=== PATIENT | female | born 1945 | race Caucasian/White ===

== ENCOUNTER → 2016-10-06 | Outpatient (CLI) | payer BC ==
[~2016-10-06] MED LIST: BIOTCAP2 PO; CHOL20007 PO; CYAN500T PO; FLUT0.15 NAE; LISI-461 PO; MAGN500C PO; MULT1CAP2 PO; PRLSR20 PO; VNTHFA/IN INH
--- NOTE | 2016-10-06 14:25 | DIAGNOSTIC IMAGING REPORT ---
SOFT TISS HEAD/NECK-THYROID CLINICAL HISTORY: E04.2 Nontoxic multinodular goiter COMPARISON STUDY: No previous studies for comparison. FINDINGS: The right of the thyroid measures 54 x 17 x 12 mm. The left lobe measures 49 x 16 x 13 mm. Both lobes are inhomogeneous in echotexture. There are multiple hypoechoic circumscribed wider than tall left lobe nodules demonstrating colloid artifact. The largest measures 15 x 12 x 6 mm. IMPRESSION: Multiple left lobe thyroid nodules. No suspicious imaging characteristics. Electronically signed by: Roger Leal M.D. 10/06/2016 2:24 PM Dictated Date/Time: 10/06/2016 2:23 PM
== END | disposition home or self-care (01) ==
LOC: C.ULTRBC 13:36
DX: E04.2 Nontoxic multinodular goiter (principal)

== ENCOUNTER 2017-02-20 11:26 | Emergency (ER) | payer BC ==
[~2017-02-20] VITALS: Ht 162.6 cm; Wt 87.4 kg
[2017-02-20 11:28] VITALS: TEMP 36.7; Ht 162.6 cm; Wt 87.4 kg
[2017-02-20] MEDS ORDERED: PRLSR20 PO (11:55)
[2017-02-20] MEDS ORDERED: BIOTCAP2 PO (11:55)
[2017-02-20] MEDS ORDERED: CYAN500T PO (11:55)
[2017-02-20] MEDS ORDERED: FLUT0.15 NAE (11:55)
[2017-02-20] MEDS ORDERED: VNTHFA/IN INH (11:55)
[2017-02-20] MEDS ORDERED: MAGN500C PO (11:55)
[2017-02-20] MEDS ORDERED: CHOL20007 PO (11:55)
[2017-02-20] MEDS ORDERED: MULT1CAP2 PO (11:55)
[2017-02-20] MEDS ORDERED: LISI-461 PO (11:55)
--- NOTE | 2017-02-20 12:59 | DIAGNOSTIC IMAGING REPORT ---
LEFT PELVIS/UNILATERAL HIP 2-3VIEWS CLINICAL HISTORY: 71 years-old Female presenting with LEFT HIP PAIN. TECHNIQUE: Single frontal view of the pelvis and frontal and frog-leg lateral views of the left hip were obtained. COMPARISON: None. FINDINGS: Bony pelvis intact. Mild degenerative change of the lower lumbar spine. Hip joints congruent. Sacroiliac joints congruent. No acute fracture or subluxation. Moderate stool burden. IMPRESSION: No acute osseous injury of the pelvis or left hip. Electronically signed by: Myron Thomas M.D. 02/20/2017 12:58 PM Dictated Date/Time: 02/20/2017 12:57 PM
--- NOTE | 2017-02-20 13:07 | EMERGENCY ROOM VISIT NOTE ---
ED Visit Note First contact with patient: 11:42 CHIEF COMPLAINT: Left hip injury this morning HISTORY OF PRESENT ILLNESS: Patient is a 71-year-old white female who presents to the emergency department for evaluation of pain in the lateral aspect of her left hip after an injury that occurred about 2 hours ago. She was doing some exercises prescribed to her by her chiropractor to straighten her legs. She describes that she was standing on a step with the left leg, and performing a squatting movement. States that while lowering herself, she felt and heard a pop in the posterior lateral aspect of the left hip with acute onset of pain. It is painful for her to do any movement where she flexed the hip afterwards, including going up the stairs. She tried taking Tylenol for her discomfort. She rates her pain a dull, aching 2/10. She denies any prior history of hip problems. She does have spinal stenosis for which she follows with the chiropractor. The pain is in the lateral aspect of her hip, and does not radiate. There is no numbness or tingling in the right lower extremity. REVIEW OF SYSTEMS: Review of systems as per HPI. All other systems reviewed were negative. At least 6 systems reviewed. PMH: Electronic medical records are reviewed and summarized as above/below. See Problem List. SOCIAL HISTORY: Patient lives at home employed. Nonsmoker. PHYSICAL EXAM: Vital Signs: Reviewed Nurse's notes. CONSTITUTIONAL: Patient is a well-appearing 71-year-old white female who is awake and alert and in no acute distress. HEART: Regular rate and rhythm. LUNGS: Clear to auscultation. ABDOMEN: Bowel sounds are present. Abdomen is soft, nontender, nondistended. NEUROLOGICAL: Alert and cooperative. Sensory and motor functions grossly intact. MUSCULOSKELETAL: Examination of the left hip does not indicate any outward signs of trauma. She has some point tenderness over the posterior lateral aspect of the left hip/buttock. No pain in the groin. Leg lengths are symmetrical. She does not have any pain with logroll, straight leg raise or hip flexion or internal and external rotation. Examination of patient's spine show more tomorrow lumbar lordotic curvature. There is no pain over the SI joint or the sciatic notch. Full lumbar spine range of motion. The left lower extremity is neurovascularly intact. EMERGENCY DEPARTMENT COURSE: The patient was seen and evaluated as above. Right hip and AP pelvis x-rays were obtained, negative for acute bony abnormality. She was reassured. Her injury appears to be muscular/ligamentous in nature. Differential diagnosis includes fracture, sprain, contusion, muscle strain, bursitis, IT band syndrome, among others. She was encouraged to rest and avoid any activities that irritate her pain, follow-up with her primary care provider or her chiropractor if her symptoms are not improving. Medication reconciliation: I attest that I have personally reviewed the patient' s current medication list. Blood pressure screening : Patient was found to have normal blood pressure on screening and does not require follow-up. LEFT PELVIS/UNILATERAL HIP 2-3VIEWS CLINICAL HISTORY: 71 years-old Female presenting with LEFT HIP PAIN. TECHNIQUE: Single frontal view of the pelvis and frontal and frog-leg lateral views of the left hip were obtained. COMPARISON: None. FINDINGS: Bony pelvis intact. Mild degenerative change of the lower lumbar spine. Hip joints congruent. Sacroiliac joints congruent. No acute fracture or subluxation. Moderate stool burden. IMPRESSION: No acute osseous injury of the pelvis or left hip. Problem List Medical Problems: (1) Asthma Status: Chronic (2) GERD (gastroesophageal reflux disease) Status: Chronic (3) Hypertension Status: Chronic (4) Spinal stenosis Status: Chronic Surgical Problems: (1) History of dental surgery Status: Resolved Current/Historical Medications Scheduled Albuterol Hfa (Ventolin Hfa), 2 PUFFS INH DAILY Biotin (Biotin 5000), 5 MG PO DAILY Cholecalciferol (Vitamin D3), 6,000 TAB PO DAILY Cyanocobalamin (Vitamin B-12), 500 MCG PO DAILY Fluticasone Propionate (Nasal) (Flonase Allergy Relief), 2 SPRAYS SHERIE DAILY Lisinopril (Zestril), 10 MG PO DAILY Magnesium Oxide (Mg Supplement (Magnesium), 500 MG PO DAILY Multiple Vitamins W/ Minerals (Womens 50+ Advanced), 1 CAP PO DAILY Omeprazole (Prilosec), 20 MG PO DAILY Allergies Coded Allergies: Epinephrine (Unverified Adverse Reaction, Unknown, "HEART RACES", 02/20/17) Metronidazole (Unverified Adverse Reaction, Unknown, NAUSEA, 02/20/17) Nitrous Oxide (Unverified Adverse Reaction, Unknown, "JUMPY", 02/20/17) Vital Signs Date Time Temp Pulse Resp B/P (MAP) Pulse Ox O2 Delivery O2 Flow Rate FiO2 02/20/17 13:19 72 16 134/78 98 Room Air 02/20/17 11:28 36.7 82 16 130/87 98 Room Air Departure Information Impression Primary Impression: Strain of left hip Referrals Afsaneh Swann M.D. (PCP) Patient Instructions My [facility] Additional Instructions Ibuprofen(Motrin, Advil) may be used for fever or pain. Use 600mg every six hours as needed. Take with food. Avoid using more than 2400mg in a 24 hour period. Do not use 2400mg per day for more than three consecutive days without physician direction. Prolonged inappropriate use can lead to stomach upset or ulcers. This medication can be taken if you need to drive, work, or perform activities which may be dangerous when taking narcotic pain medication. (AND/OR) Acetaminophen(Tylenol) may be used for fever or pain. Use 1000mg every six hours as needed. Avoid using more than 3000mg in a 24 hour period. This medication can be taken if you need to drive, work, or perform activities which may be dangerous when taking narcotic pain medication. Ice compresses for 20 minutes at a time four times daily for 2-3 days. Rest and elevate your injury. May resume normal activity as your symptoms allow. Continue current medications. Return to the ER immediately for any numbness, tingling, severe pain, extreme swelling in the extremity or as needed. Follow-up with your primary care provider if your symptoms are not improving in the next 3-5 days.
[2017-02-20 13:19] VITALS: BP 134/78; PULSE 72; O2SAT 98
== END 2017-02-20 13:31 | disposition home or self-care (01) ==
LOC: C.EDB 11:27 → C.EDD 13:31
DX: S76.012A Strain of muscle, fascia and tendon of left hip, initial encounter (principal); X50.1XXA Overexertion from prolonged static or awkward postures, initial encounter; Y92.9 Unspecified place or not applicable; Y93.B9 Activity, other involving muscle strengthening exercises; J45.909 Unspecified asthma, uncomplicated; K21.9 Gastro-esophageal reflux disease without esophagitis; I10 Essential (primary) hypertension; M48.00 Spinal stenosis, site unspecified; Z79.899 Other long term (current) drug therapy

== ENCOUNTER → 2017-07-21 | Outpatient (CLI) | payer BC ==
--- NOTE | 2017-07-21 11:52 | DIAGNOSTIC IMAGING REPORT ---
ULTRASOUND GUIDED FINE NEEDLE ASPIRATION OF 1.5 CM LEFT LOBE THYROID NODULE CLINICAL HISTORY: Thyroid nodule. COMPARISON STUDY: Thyroid ultrasound October 06, 2016. PROCEDURE: Sonography of the thyroid gland demonstrated the 1.5 cm hypoechoic left lobe thyroid nodule which was targeted for fine needle aspiration. Procedure, risks and benefits were discussed with the patient. Informed written consent was obtained. The procedure was performed by Dr. Albarran following a timeout. Skin of the left neck was prepped and draped in sterile fashion and local anesthesia was achieved with 1% lidocaine. Under direct ultrasound guidance, 2 25-gauge fine needle aspirations were performed. The samples were deemed preliminarily adequate by pathology. The patient tolerated the procedure well and no immediate complications were evident. IMPRESSION: Ultrasound guided fine needle aspiration of 1.5 cm left lobe thyroid nodule. Electronically signed by: Hasmukh Albarran M.D. 07/21/2017 11:50 AM Dictated Date/Time: 07/21/2017 11:35 AM
== END | disposition home or self-care (01) ==
LOC: C.ULTR 10:25
PROVIDERS: ATTEND Physician Assistant
DX: E04.2 Nontoxic multinodular goiter (principal)

== ENCOUNTER 2020-11-20 06:34 | Observation (INO) ==
--- NOTE | 2020-10-24 16:13 | PAT Medication Instructions ---
Medication Instructions Date of Service October 24, 2020 Home Medications acetaminophen 325 mg capsule 325 mg PO QID PRN flaxseed oil 1,000 mg capsule 1,000 mg PO QAM montelukast 10 mg tablet 10 mg PO QAM biotin 5 mg PO QAM calcium carbonate [Tums] 300 mg PO BID PRN cholecalciferol (vitamin D3) [Vitamin D3] 6,000 unit PO QAM fluticasone propionate [Flonase Allergy Relief] 1 spray INTRANASAL QAM gabapentin 600 mg PO HS multivitamin 1 tab PO QAM naproxen sodium 220 mg PO BID omeprazole 20 mg PO DAILY PRN ASK your surgeon for instructions naproxen sodium 220 mg PO BID STOP taking 2 weeks before surgery flaxseed oil 1,000 mg capsule 1,000 mg PO QAM biotin 5 mg PO QAM DO NOT take the morning of surgery montelukast 10 mg tablet 10 mg PO QAM calcium carbonate [Tums] 300 mg PO BID PRN cholecalciferol (vitamin D3) [Vitamin D3] 6,000 unit PO QAM multivitamin 1 tab PO QAM Take morning of surgery With a small sip of water, OTHERWISE NOTHING TO EAT OR DRINK AFTER MIDNIGHT: acetaminophen 325 mg capsule 325 mg PO QID PRN (okay to take up to 4 hours prior to surgery if needed) fluticasone propionate [Flonase Allergy Relief] 1 spray INTRANASAL QAM omeprazole 20 mg PO DAILY PRN (if needed) Take evening before surgery acetaminophen 325 mg capsule 325 mg PO QID PRN (if needed) calcium carbonate [Tums] 300 mg PO BID PRN (if needed) gabapentin 600 mg PO HS omeprazole 20 mg PO DAILY PRN (if needed) Other Notes If you have any questions please call us at [phone] or [phone] or [phone] or [phone]
--- NOTE | 2020-10-28 15:00 | Anesthesiology Consultation ---
Date of Service October 28, 2020 Assessment & Plan (1) Encounter for pre-operative examination: COVID Status: As of 10/28 assessment, patient denies travel to endemic area, known exposure/sick contacts, or symptoms of COVID19. Patient advised to adhere to social distancing guidelines, wear a mask in public and avoid large crowds or unnecessary travel in the 2 weeks leading up to surgery. Preoperative COVID19 testing to be completed prior to surgery per surgeon's arrangements (pt reports 11/13, but I clarified with surgeon's office this will be changing to [facility] 2-4 days prior to sx and they will reach out to pt to clarify with her). Patient encouraged to be extra cautious/conscientious with COVID precautions between COVID testing and surgery. Patient requesting no opioids if possible -- severe prolonged nausea in the past. Advised to discuss options with NAE CAREY. Chart Review Chart Review: Acceptable Risk for Surgery and Patient seen in Pre Admission Testing Teaching & Discussion Instructed NPO after midnight before surgery, except medications with 15 cc of water. Medication instructions provided according to the PAT guidelines. History Surgery Operation Date: 11/20/20 07:15 Proposed Procedures p Right Total Hip Arthroplasty - Myron Okeefe MD Height/Weight Height: 5 ft 2 in Weight: 81.647 kg Allergies Allergy/AdvReac Type Severity Reaction Status Date / Time metronidazole AdvReac Severe NAUSEA Verified 10/22/20 11:59 nitrous oxide AdvReac Severe "jumpy, Verified 10/22/20 11:59 combative" Opioids-Meperidine and AdvReac Severe Nausea Verified 10/28/20 15:11 Related temazepam AdvReac Severe severe Verified 10/22/20 11:58 panic attack epinephrine AdvReac Intermediate "HEART Verified 10/22/20 11:58 RACES" hydrochlorothiazide AdvReac Unknown Unknown Verified 10/22/20 11:58 codeine AdvReac Nausea Verified 10/28/20 14:52 Medications Home Medications Medication Instructions Recorded Confirmed Last Taken acetaminophen 325 mg capsule 325 mg PO QID PRN 06/27/20 10/22/20 Unknown flaxseed oil 1,000 mg capsule 1,000 mg PO QAM 06/27/20 10/22/20 Unknown mometasone 1 inh INHALATION QAM 06/27/20 10/22/20 Unknown montelukast 10 mg tablet 10 mg PO QAM 06/27/20 10/22/20 Unknown biotin 5 mg PO QAM 10/22/20 10/22/20 Unknown calcium carbonate [Tums] 300 mg PO BID PRN 10/22/20 10/22/20 Unknown cholecalciferol (vitamin D3) 6,000 unit PO QAM 10/22/20 10/22/20 Unknown [Vitamin D3] fluticasone propionate [Flonase 1 spray INTRANASAL [facility] 10/22/20 10/22/20 Unknown Allergy Relief] gabapentin 600 mg PO HS 10/22/20 10/22/20 Unknown multivitamin 1 tab PO QA 10/22/20 10/22/20 Unknown naproxen sodium 220 mg PO BID 10/22/20 10/22/20 Unknown omeprazole 20 mg PO DAILY PRN 10/22/20 10/22/20 Unknown albuterol sulfate [ProAir HFA] 1 puff INHALATION PRN 10/29/20 Unknown Past Medical History Medical History Anxiety Asthma well controlled with medication. Rescue inhlaer use ~once/month Depression Osteoarthritis Pneumonia hx - no problems since starting medications Presence of tooth-root and mandibular implants Sciatica Exercise / Class Metabolic Activity II 4-5 Yardwork/Stairs/Walk up hill Past Family History Family History Other Diabetes Heart disease No family history of adverse response to anesthesia Past Surgical History Surgical History History of esophagogastroduodenoscopy (EGD) Hx of oral surgery x2 teeth implants Past Anesthesia History No Hx of Anesthesia Complications and No Family Hx of Anesthesia Complications (mother had "issues breathing" during hip surgery) History of PONV No Hx of PONV and Hx of Motion Sickness Social History Smoking Status: Former smoker Do You Dip or Chew Tobacco: No Smoking End Date: quit 35 yrs ago Hx Alcohol Use: No Hx Substance Use: No substance use type: does not use Review of Systems Pt denies any recent chest pain, shortness of breath, palpitations, cough, fever, URI, or uncontrolled acid reflux. Physical Exam Vital Signs BP: 132/86 P: 79bpm SPO2: 97% RA T: 98.0 F R: 16 ENMT Mouth: + dental restorations (implant upper R canine, broken) and + loose teeth (very mild L lower side, only when flossing); no chipped teeth Thyromental Distance: < 3.5 Finger Breadths (3) Mallampati Class: III Neck neck extension not limited Respiratory normal respiratory effort, lungs clear to auscultation Cardiovascular RRR, no murmur, no edema Lab Results Anesthesia Preop Results Results Anesthesia Widget: WBC 7.30 K/uL (4.8-10.8) 10/28/20 Hgb 14.3 g/dL (12.0-16.0) 10/28/20 Hct 42.2 % (37-47) 10/28/20 Plt 216 K/uL (130-400) 10/28/20 Na 136 mmol/L (136-145) 10/28/20 K 4.1 mmol/L (3.5-5.1) 10/28/20 Cl 103 mmol/L (98-107) 10/28/20 CO2 30 mmol/L (21-32) 10/28/20 BUN 15 mg/dl (7-18) 10/28/20 Creat 0.69 mg/dl (0.6-1.2) 10/28/20 Glucose Level 109 mg/dl (70-99) H 10/28/20 PT 9.7 Seconds (9.0-12.0) 10/28/20 INR 1.0 (0.9-1.1) 10/28/20 HA1c 5.6 % (4.5-5.6) 10/28/20 Urine Color Yellow 10/28/20 Urine Appearance Clear (Clear) 10/28/20 Urine pH 7.5 (4.5-7.5) 10/28/20 Urine Specific [place] 1.007 (1.000-1.030) 10/28/20 Urine Protein Negative (Negative) 10/28/20 Urine Glucose (UA) Negative (Negative) 10/28/20 Urine Ketones Negative (Negative) 10/28/20 Urine Blood Negative (Negative) 10/28/20 Urine Nitrite Negative (Negative) 10/28/20 Urine Bilirubin Negative (Negative) 10/28/20 Urine Urobilinogen Negative (Negative) 10/28/20 Urine Leukocyte Esterase Negative (Negative) 10/28/20 Blood Type B Positive 10/28/20 Antibody Screen NEGATIVE 10/28/20 Testing Electrocardiogram Date: 10/28/20 Findings: + NSR @ (72bpm)
--- NOTE | 2020-10-30 14:02 | History & Physical Report ---
Date of Service October 30, 2020 Assessment & Plan Admission and Anticipated Discharge Date Admission Date: PRE-OP Diagnosis: Right hip osteoarthritis Planned Procedure: Right total hip arthroplasty Plan: Patient is scheduled to undergo this procedure at [facility] on November 20, [address] Myron Okeefe. Risks and complications of the procedure such as: Infection, bleeding, pain, scarring, nerve blood vessel damage, weakness, wound problems, stiffness, incomplete relief of symptoms, hardware failure, hardware loosening, wear, fracture, tendon or ligament injury, dislocation, leg length inequality, blood clots, embolism, heart attack, stroke and were explained the patient had a visit on September [address] Okeefe. Patient also understands risks of proceeding with surgical intervention during the COVID-19 pandemic. Currently she is asymptomatic and understands she will need to be tested approximately 3 days prior to her procedure. Patient had her preanesthesia clearance at the hospital earlier today and while there she o btained a CBC with differential, complete metabolic panel, PT/INR, blood type and screen, urinalysis, urine culture and sensitivity, EKG, hemoglobin A1c and a nasal culture for MRSA. Patient states she has an appointment with her primary care provider Dr. Agrawal next week. During today's visit we discussed total hip precautions, we reviewed the total hip packet, we talked about antibiotic use following joint replacement surgery, we discussed lectures offered by [facility] in regards to joint replacement surgery via zoom, we talked about discharge planning and the purchase of a hip kit, raised toilet seat, shower chair. Patient states she has a walker she will bring with her on the day of the procedure. I also advised her she will have to sleep in the abduction pillow between her legs for 6 weeks postoperatively. I advised the patient we will provide her with prescriptions for a narcotic pain medication for postoperative pain control, and anti-inflammatory medication. We recommend the use of baby aspirin twice daily for blood clot prevention and supplemental pain control with extra strength Tylenol. Patient verbalized understanding of outpatient provided during today's visit. She thanked us for the care that she received. If she has questions or concerns should arise prior to her surgery, she will contact the clinic. She is scheduled for 2-week postoperative follow-up visit with David Phillips on December 05 at 11:15 AM. History of Present Illness Chief Complaint: Chief Complaint: Right hip pain Primary Care Provider: Afsaneh Swann History of Present Illness (including history relevant to procedure): This 74-year-old female presents the clinic today for preoperative history and physical. She has had issues with her hip for the last couple of years. She actually saw Dr. Robles a year and half ago, who gave her a troch bursa injection. She says this only lasted about 4 days. She then has gone on to work with a physical therapist. She has been doing PT for the last 4-5 months. She then ended up getting an x-ray recently. This showed [id number] arthritis in the right hip. atient reports the pain is worse in the lateral aspect of the hip. Only rarely does she feel it in the groin. It is better with rest, Aleve, Tylenol, and heat. Worse with walking. She enjoys walking her dogs for exercise. She has not had any other injections in the hip other than the one Dr. Robles gave her. She says the physical therapy has given her some relief. Denies any numbness or tingling. Review Of Systems: A 14 point review of systems performed is unremarkable except for those things stated in the HPI and past medical history. Past Medical History: Problems: Osteoarthritis of right hip Pre-op exam Right hip pain Seasonal affective disorder Bursitis of right hip Left knee pain Essential hypertension Mild asthma Chest congestion Anxiety GERD Obesity Procedure History Procedure Procedure Date Comments X-ray of left knee Dental implants 01/14/2020 - Negative study. Allergies and Sensitivities: traMADol(unknown) tapentadol(unknown) Opana(unknown) oxyCODONE(unknown) morphine(unknown) methadone(unknown) Demerol(unknown) Dilaudid(unknown) HYDROcodone(unknown) fentaNYL(unknown) Zoloft(unknown) Paxil(unknow) Luvox(unknown) PROzac(unknown) Lexapro(unknown) CeleXA(unknown) EPINEPHrine(heart palpations) Flagyl(nausea) codeine(nausea) nitrous oxide(combative) Current Home Meds: (Last Updated 10/28 15:42) ALPRAZolam (ALPRAZolam 0.5 mg oral tablet) 0.5 mg PO ONCE PRN: as needed for anxiety Take 1 tablet, if ineffective after 1/2 hour can take second tablet. acetaminophen (Tylenol) 1,000 mg PO q6h PRN: as needed for pain albuterol (ProAir HFA 90 mcg/inh inhalation aerosol) 2 puff inhaled qid PRN: as needed for wheezing biotin (biotin 5000 mcg oral tablet, disintegrating) PO Daily cholecalciferol (Vitamin D3 2000 intl units (50 mcg) oral capsule) estradiol topical (Estring 2 mg vaginal ring) flax (Flax Seed Oil) fluticasone nasal (Flonase 50 mcg/inh nasal spray) 1 spray each nostril Daily PRN: allergy symptoms gabapentin (gabapentin 300 mg oral capsule) 300 mg PO bid loratadine-pseudoephedrine (Claritin-D 12 Hour) 1 tab PO Daily mometasone (mometasone 110 mcg/inh inhalation aerosol powder) 1 puff inhaled qPM montelukast (montelukast 10 mg oral tablet) 10 mg PO qPM multivitamin 1 tab PO Daily omeprazole (omeprazole 20 mg oral delayed release capsule) 20 mg PO Daily ondansetron (Zofran 4 mg oral tablet) 32 mg PO q8h PRN: as needed for nausea/vomiting ubiquinone (Co Q-10) Allergies Allergy/AdvReac Type Severity Reaction Status Date / Time metronidazole AdvReac Severe NAUSEA Verified 10/22/20 11:59 nitrous oxide AdvReac Severe "jumpy, Verified 10/22/20 11:59 combative" Opioids-Meperidine and AdvReac Severe Nausea Verified 10/28/20 15:11 Related temazepam AdvReac Severe severe Verified 10/22/20 11:58 panic attack epinephrine AdvReac Intermediate "HEART Verified 10/22/20 11:58 RACES" hydrochlorothiazide AdvReac Unknown Unknown Verified 10/22/20 11:58 codeine AdvReac Nausea Verified 10/28/20 14:52 Home Medications Medication Instructions Recorded Confirmed Type acetaminophen 325 mg capsule 325 mg PO QID PRN 06/27/20 10/22/20 History flaxseed oil 1,000 mg capsule 1,000 mg PO QAM 06/27/20 10/22/20 History mometasone 1 inh INHALATION QAM 06/27/20 10/22/20 History montelukast 10 mg tablet 10 mg PO QAM 06/27/20 10/22/20 History biotin 5 mg PO QAM 10/22/20 10/22/20 History calcium carbonate [Tums] 300 mg PO BID PRN 10/22/20 10/22/20 History cholecalciferol (vitamin D3) 6,000 unit PO QAM 10/22/20 10/22/20 History [Vitamin D3] fluticasone propionate [Flonase 1 spray INTRANASAL QA 10/22/20 10/22/20 History Allergy Relief] gabapentin 600 mg PO HS 10/22/20 10/22/20 History multivitamin 1 tab PO QAM 10/22/20 10/22/20 History naproxen sodium 220 mg PO BID 10/22/20 10/22/20 History omeprazole 20 mg PO DAILY PRN 10/22/20 10/22/20 History albuterol sulfate [ProAir HFA] 1 puff INHALATION PRN 10/29/20 History Past Med/Surg History Medical History Anxiety Asthma well controlled with medication. Rescue inhlaer use ~once/month Depression Osteoarthritis Pneumonia hx - no problems since starting medications Presence of tooth-root and mandibular implants Sciatica Surgical History History of esophagogastroduodenoscopy (EGD) Hx of oral surgery x2 teeth implants Family History Other Diabetes Heart disease No family history of adverse response to anesthesia Social History Smoking Status: Former smoker Second Hand Exposure: No; Hx Alcohol Use: No Hx Substance Use: No Preferred Language: Serbian Communication Ability: Effective Floor Grinder Required: No Beliefs That Will Affect Care: None marital status: / Current Living Situation: Alone current occupational status: retired Feels Safe at Home: Yes Assistive Devices: Cane and Glasses Review of Systems All systems reviewed & are unremarkable except as noted in Subjective Physical Exam Physical Exam: Physical Exam: (relevant to the procedure, including heart and lung evaluation) General: Alert and oriented x3 with proper grooming and hygiene Eyes: Pupils are equal and reactive to light with accommodation. Extract movements are intact Throat: Deferred due to COVID-19 precautions Cardiac: Regular rate and rhythm with no murmurs or gallops appreciated Lungs: Clear to auscultation throughout no wheezing, rales or rhonchi Abdomen: Obese, nondistended, nontender with normal active bowel sounds Extremities: Right hip exam today reveals the patient to have significant tenderness to palpation over the trochanteric bursa. However, hip abductor strength is intact without any deficiencies or pain. She does have some stiffness, however, in the right hip with flexion limited to 105 degrees, external rotation to 50 degrees, and internal rotation to 0 degrees. Figure-4 testing reveals her knee to be 16 inches off the table. This is consistent with stiffness. Neuro: Cranial nerves II through XII are intact no motor or sensory deficit Skin: Normal appearance no open skin areas or discharge Results & Data ([place]) Diagnostic Findings Studies (relevant to the procedure): X-rays done of the right hip are reviewed. This demonstrates severe right hip osteoarthritis with joint space narrowing to near destruction and subchondral sclerosis.
[~2020-11-20 06:34] MED LIST changes: +ACETAMINOPHEN 500 MG TAB PO SCH; -BIOTCAP2 PO; +BUPIVACAINE 0.5 % 5 MG/1 ML PF 10ML VIAL ONE; +BUPIVACAINE 0.75% INFIL SCH; -CHOL20007 PO; -CYAN500T PO; +CeleBREX 200 MG CAP PO SCH; +FAMOTIDINE 20 MG TAB PO SCH; -FLUT0.15 NAE; +HCL INFIL SCH; -LISI-461 PO; +LR 500ML BOLUS, THEN 15ML/HR IV SCH; +LR 60ML/HR IV SCH; -MAGN500C PO; +METOCLOPRAMIDE HCL 10 MG TABLET PO SCH; -MULT1CAP2 PO; -PRLSR20 PO; +ROPIVACAINE 0.5% INFIL SCH; +Scopolamine 1 MG TDSY TD SCH; +TRANEXAMIC ACID 1,000 MG **IV Intra-op IV SCH; +TRANEXAMIC ACID 1,000 MG **IV Pre-op IV SCH; -VNTHFA/IN INH; +[UNRECOGNIZED DRUG - OTHER] INFIL SCH; +ceFAZolin 2000MG 2,000 MG/15 ML SYR IV SCH; +dexAMETHasone 4 MG TAB PO SCH; +traMADol HCL 50 MG TABLET PO SCH
[2020-11-20] MEDS ORDERED: MIDAZOLAM HCL 1 MG/ML 2ML VIAL ONE ×2 (07:48→09:36)
[2020-11-20] MEDS ORDERED: PHENYLEPHRINE 100MCG/ML 5ML SYR IV PRN (08:45)
[2020-11-20] MEDS ORDERED: ONDANSETRON INJ 2 MG/ML 2 ML VIAL IV PRN ×2 (08:45→11:26)
[2020-11-20] MEDS ORDERED: ePHEDrine sulfate 50 MG/ML AMP IV PRN (08:45)
[2020-11-20] MEDS ORDERED: LABETALOL HCL IV 5 MG/ML 20ML IV PRN (08:45)
[2020-11-20] MEDS ORDERED: fentaNYL citrate 100 MCG/2 ML VIAL IV PRN (08:45)
[2020-11-20] MEDS ORDERED: ATROPINE SULFATE 0.1 MG/ML 10ML SYR IV PRN (08:45)
--- NOTE | 2020-11-20 09:03 | History & Physical Bridge Note ---
Date of Service November 20, 2020 History & Physical Bridge Note I have examined the patient, reviewed the History & Physical and in the interval since the performance of the History & Physical I have noted the following changes of clinical significance: no changes noted
[2020-11-20] MEDS ORDERED: ORTHO JOINT ANESTHETIC ONE (09:16)
[2020-11-20] MEDS ORDERED: PROPOFOL IV EMULSION 10 MG/ML 20 ML VIAL IV ONE (09:24)
[2020-11-20] MEDS ORDERED: LIDOCAINE 2% 2 ML VIAL/AMP(20MG/ML) INFIL ONE (09:24)
[2020-11-20] MEDS ORDERED: PHENYLEPHRINE 100MCG/ML 5ML SYR ONE (10:02)
[2020-11-20] MEDS ORDERED: bisacodyL 10 MG SUPP PR PRN (11:26)
[2020-11-20] MEDS ORDERED: HYDROmorphone INJ 0.5 MG/0.5 ML SYR IV PRN (11:26)
[2020-11-20] MEDS ORDERED: MAGNESIUM HYDROXIDE SUSP 30 ML UDC PO PRN (11:26)
[2020-11-20] MEDS ORDERED: diphenhydrAMINE 50 MG/ML VIAL IV PRN (11:26)
[2020-11-20] MEDS ORDERED: METOCLOPRAMIDE HCL INJ 5 MG/ML 2 ML VIAL IV PRN (11:26)
[2020-11-20] MEDS ORDERED: NALOXONE HCL 0.4 MG/1 ML VIAL/CARP IV PRN (11:26)
[2020-11-20] MEDS ORDERED: ALUMINUM/MAGNESIUM SUSP 30 ML UDC PO PRN (11:26)
--- NOTE | 2020-11-20 11:26 | Operative Report ---
Post Operative Report Pre & Post Diagnosis Operation Date: 11/20/20 09:10 Pre-Op Diagnosis: Right Hip Arthritis Post-Op Diagnosis: Right Hip Arthritis I identified the patient and participated in the time-out.: Yes Procedure Operation Date: 11/20/20 09:10 Actual Procedures p Right Total Hip Arthroplasty - uncemented(Right) - Myron Okeefe MD Surgeon Myron Okeefe MD Local Driver Ale Taylor PA-C Estimated Blood Loss 100 Findings Consistent with Post-Op Diagnosis Specimens femoral head Complications none Disposition Accompanied Patient To Recovery: No Disposition: Recovery Room Description of Procedure I was present during the entire procedure assisting with positioning, prepping, draping, wound retraction, wound closure, dressing and abduction pillow placement. No fellow present. Please see Dr. Okeefe procedure note for specifics of the case. I attest to the content of the Intraoperative Record and any orders documented therein. Any exceptions are noted below.
[2020-11-20] MEDS ORDERED: CALCIUM CARBONATE 500 MG CHEWABLE TAB PO PRN (11:30)
--- NOTE | 2020-11-20 11:30 | Operative Report ---
Post Operative Report Pre & Post Diagnosis Operation Date: 11/20/20 09:10 Pre-Op Diagnosis: Right Hip Arthritis Post-Op Diagnosis: Right Hip Arthritis I identified the patient and participated in the time-out.: Yes Procedure Operation Date: 11/20/20 09:10 Actual Procedures p Right Total Hip Arthroplasty - uncemented(Right) - Myron Okeefe MD Surgeon Myron Okeefe MD Clinical Therapist NAEEM Taylor PA-C Estimated Blood Loss 100 Findings Consistent with Post-Op Diagnosis Specimens Right femoral head Anesthesia Type Spinal MAC Complications none Disposition Accompanied Patient To Recovery: No Indications 75-year-old female with right hip arthritis refractory to conservative management. X-rays show [id number] arthritis. I had a long discussion with her about the risks and benefits surgery, alternatives to surgery, and expected outcomes. After reviewing all these she elected to proceed with surgery. All questions were answered. Informed consent was signed. Description of Procedure Patient was identified in the preoperative holding area and the surgical site, right hip, was marked. A spinal anesthetic was placed, then the patient was brought back to the main operating room, placed in the operating table and moved into the lateral decubitus position. Axillary roll was placed. All bony prominences were padded. Perioperative antibiotics and tranexamic acid 1 gram IV were administered. Operative extremity was prepped and draped in the normal sterile fashion. Prior to incision a multidisciplinary timeout was called. All in the room were in agreement. We began by making an incision for a posterior approach to the hip. We dissected down through subcutaneous tissues to the level of the fascia. The fascia was incised in line with the incision. Charnley bow was placed. The trochanteric bursa was excised. The piriformis and short external rotators were dissected off the posterior aspect of the hip. A box cut was made in the capsule. The femoral head was dislocated. The femoral neck cut was made at our preoperative template. The acetabulum was then exposed. The labrum was sharply excised. Contents of the cotyloid fossa were removed with electrocautery. We then began reaming at a size 8 mm less than our preoperative template. We reamed up by [address] the way up to a size 52 mm cup. This gave us good bleeding cancellus bone circumferentially. The acetabulum was then irrigated out and dried. The real [place] Gription cup was then impacted down into position with 45 degrees of lateral opening and 25 degrees of anteversion. A single cancellous bone screw was placed up into the ilium. Excellent fixation was obtained. An Altrx polyethylene liner for a 32 mm femoral head was then impacted into the shell. The locking mechanism was checked to ensure that it had engaged which it had. Next we turned our attention to the femur. The lateral neck was removed with a box osteotome. Intramedullary guide was used followed by the lateralizing reamer. We then reamed up to a size 5 [place] stem. We then broached all the way up to a size 5. We began trialing with a high offset neck and a +5 head. Hip was reduced. Leg lengths were symmetric. The hip was stable in extension and external rotation, and stable in the sleeper position. At 90 degrees of hip flexion the hip could be internally rotated 75 degrees before levering out of the cup. I was very happy with the stability exam. Therefore the hip was dislocated and the femoral trial was removed. The femoral canal was irrigated and dried. The real size 5 high offset [place] femoral stem was opened up. This was impacted down into position. It sat at the same level as the femoral trial. Therefore the 32 mm ceramic femoral head with a +5 mm offset was opened up and gently impacted down onto the trunnion. The hip was atraumatically reduced. Another 1 gram of IV tranexamic acid was started prior to closure. The wound was irrigated out with sterile Betadine solution. The periarticular injection cocktail was then placed. The short external rotators, piriformis, and posterior capsule were repaired through drill holes in the greater trochanter u sing #2 Vicryl. The fascia was run with a looped #1 PDS. The subcutaneous layer was closed with #1 PDS. The dermal layer was closed with 2-0 Vicryl. Zip line was used for the skin followed by a Silverlon dressing. A compressive dressing was then placed. The patient was then rolled supine. Leg lengths were rechecked and were symmetric. An abduction pillow was placed. Sedation was lifted and the patient was transferred to recovery room in stable condition. Summary of implants: Depuy [place] Gription Acetabular Shell Sector Cup, 52 mm outer diameter [place] Cancellous bone screw, 6.5 x 35 mm [place] Altrx Polyethylene Acetabular Liner, Neutral, with a 32 mm inner diameter DePuy [place] Femoral stem with [place], 12/14 taper, size 5 high offset 32 mm ceramic femoral head with +5 offset Postoperative course: Patient will be admitted to the hospital from the recovery room. Patient will be weightbearing as tolerated with posterior hip precautions. Aspirin for DVT prophylaxis I attest to the content of the Intraoperative Record and any orders documented therein. Any exceptions are noted below.
--- NOTE | 2020-11-20 12:28 | XRay Report ---
XR pelvis 1-2V routine CLINICAL HISTORY: Post Surgical COMPARISON: Pelvis radiograph October 08, 2020. FINDINGS: Alignment of the total right hip arthroplasty is anatomic. There is no periprosthetic frac ture or unexpected radiopaque foreign body. There is an acetabular screw. IMPRESSION: Expected findings following total right hip arthroplasty. ACT 112: Negative or not required by law. Electronically signed by: Hasmukh Albarran M.D. 11/20/2020 12:26 PM
--- NOTE | 2020-11-20 13:16 | Anesthesiology Progress Note ---
Date of Service November 20, 2020 Anesthesia Post Procedure Vital Signs Vital Signs: Temp Pulse Pulse Resp BP Pulse Ox 11/20/20 12:55 65 16 106/58 L 99 11/20/20 12:45 74 21 112/69 100 11/20/20 12:35 67 13 118/72 97 11/20/20 12:25 68 22 107/74 99 11/20/20 12:15 64 13 112/70 100 11/20/20 12:05 70 17 108/70 100 11/20/20 11:55 71 13 113/68 99 11/20/20 11:45 65 12 106/60 99 11/20/20 11:35 63 20 99/59 L 98 11/20/20 11:25 36.4 C L 67 15 94/57 L 98 11/20/20 08:20 36.9 C 81 18 156/95 H 100 11/20/20 08:01 37.1 C 82 18 154/100 H 97 Transfer of Care Handoff Completed per policy Notes Mental Status: alert / awake / arousable Patient Amnestic to Procedure: Yes Nausea / Vomiting: adequately controlled Pain: adequately controlled Airway Patency, RR, SpO2: stable & adequate BP & HR: stable & adequate Hydration State: stable & adequate Neuraxial Anesthesia: was administered and sensory block is resolving Anesthetic Complications: no major complications apparent and Pt Satisfied with anesthetic care
[2020-11-20] MEDS ORDERED: SODIUM CHLORIDE 0.9% 1000ML 1,000 ML IV SCH (14:00)
[2020-11-20] MEDS ORDERED: PANTOprazole 40 MG TAB PO PRN (14:09)
[2020-11-20] MEDS: ACETAMINOPHEN 500 MG TAB PO SCH ×2 (15:43→21:25)
[2020-11-20] MEDS: Scopolamine CHECK PATCH PLACEMENT SCH ×2 (15:44→22:27)
[2020-11-20] MEDS: KETOROLAC TROMETHAMINE 15 MG/ML VIAL IV SCH (17:22)
[2020-11-20] MEDS: ceFAZolin 2000MG 2,000 MG/15 ML SYR IV SCH (17:23)
[2020-11-20] MEDS ORDERED: TRANEXAMIC ACID / 0.7% NACL 1,000 MG/100 ML BAG IV SCH (17:30)
[2020-11-20] MEDS: traMADol HCL 50 MG TABLET PO PRN ×2 (18:08→22:30)
[2020-11-20] MEDS: DOCUSATE SODIUM 100 MG CAP PO SCH (20:07)
[2020-11-20] MEDS ORDERED: SENNA 8.6 MG TAB PO SCH (21:00)
[2020-11-20] MEDS ORDERED: GABAPENTIN 600 MG TAB PO SCH (21:00)
[2020-11-21] MEDS: KETOROLAC TROMETHAMINE 15 MG/ML VIAL IV SCH ×3 (00:18→11:38)
[2020-11-21] MEDS: ceFAZolin 2000MG 2,000 MG/15 ML SYR IV SCH (02:56)
[2020-11-21] MEDS: ACETAMINOPHEN 500 MG TAB PO SCH ×2 (05:36→13:25)
[2020-11-21 06:28] LABS: Basophils # (auto) 0.01 K/uL (0-0.2); Basophils % (auto) 0.1 %; Hemoglobin 12.9 g/dL (12.0-16.0); Immature Granulocytes # (auto) 0.04 K/uL (0.00-0.02); Immature Granulocytes % (auto) 0.3 %; Lymphocytes # (auto) 1.49 K/uL (1.2-3.4); Mean Corpuscular Hemoglobin 32.2 pg (25-34); Mean Corpuscular Hgb Conc 33.9 g/dL (32-36); Mean Corpuscular Volume 94.8 fL (80-100); Mean Platelet Volume 11.2 fL (7.4-10.4); Monocytes # (auto) 0.55 K/uL (0.11-0.59); Monocytes % (auto) 4.4 %; Neutrophils % (auto) 83.2 %; Platelet Count 210 K/uL (130-400); RDW Coefficient of Variation 12.4 % (11.5-14.5); RDW Standard Deviation 42.6 fL (36.4-46.3); Red Blood Count 4.01 M/uL (4.2-5.4); White Blood Count 12.39 K/uL (4.8-10.8)
[2020-11-21 07:04] LABS: BUN Creatinine Ratio 21.7 (10-20); Calcium 9.5 mg/dl (8.5-10.1); Creatinine Clr Calc Pharmacy 77.8 ml/min; Est GFR (Non-African American) 88.8 ml/min; Potassium 4.5 mmol/L (3.5-5.1)
[2020-11-21] MEDS: Scopolamine CHECK PATCH PLACEMENT SCH (07:34)
[2020-11-21] MEDS: DOCUSATE SODIUM 100 MG CAP PO SCH (07:37)
[2020-11-21] MEDS: traMADol HCL 50 MG TABLET PO PRN ×2 (07:44→14:37)
[2020-11-21] MEDS ORDERED: dexAMETHasone 4 MG TAB PO SCH (08:00)
[2020-11-21] MEDS ORDERED: MONTELUKAST SODIUM 10 MG TABLET PO SCH (09:00)
[2020-11-21] MEDS ORDERED: FLUTICASONE FUROATE 200MCG 14 PUFFS/INHALER INH SCH (09:00)
[2020-11-21] MEDS ORDERED: NON-FORMULARY MEDICATION (Biotin 5 mg Capsule) PO SCH (09:00)
[2020-11-21] MEDS ORDERED: MULTIVITAMIN TAB PO SCH ×2 (09:00)
[2020-11-21] MEDS ORDERED: CHOLECALCIFEROL 1,000 UNITS 25 MCG TAB PO SCH (09:00)
[2020-11-21] MEDS ORDERED: NON-FORMULARY MEDICATION (Flaxseed Oil 1,000 mg capsule) PO SCH (09:00)
[2020-11-21] MEDS ORDERED: FLUTICASONE PROPIONATE NA SPR 16 GM BTL NAE SCH (09:00)
[2020-11-21] MEDS ORDERED: ASPIRIN 81 MG ECTAB PO SCH (09:00)
--- NOTE | 2020-11-21 11:00 | Orthopedic Progress Note ---
Date of Service November 21, 2020 Assessment & Plan (1) S/P total hip arthroplasty: Total hip precautions reviewed Weightbearing as tolerated with walker assistance PT/OT Pain control with p.o. medications DVT prophylaxis with aspirin and LAMBERTO stocking Ice with EZ wrap Abduction pillow use x6 weeks Keep Silverlon dressing in place Plan on discharge home today with in-home physical therapy for the first 2 weeks postoperatively Follow-up with [facility] orth[facility]ics previously scheduled With questions contact the clinic at [phone] Admission and Anticipated Discharge Date Admission Date: November 20, 2020 Subjective 75-year-old female is day 1 status post right total hip arthroplasty. She states she is doing very well. She states that she would like to be discharged home today and plans on doing in-home physical therapy for the first 2 weeks postoperatively. She states that the pain is well controlled with p.o. tramadol. Patient states she would like to To be discharged sometime after lunch. Patient denies chest pain, shortness of breath, fever, chills, sweats, lethargy, numbness or tingling in her right lower extremity, nausea, vomiting, diarrhea or difficulty urinating. Review of Systems Review of Systems: All systems reviewed & are unremarkable except as noted in Subjective Physical Exam Physical Exam: Right hip: Outer dressing was removed. Silverlon is intact clean and dry. Patient does have some difficulty performing a straight leg raise test and flexing her knee to 90 degrees. She is able to actively dorsi and plantarflex her foot. I watched her walk down the [place] with physical therapy and she did so easily. Quad strength is 3 out of 5. She experiences no pain with a logroll test. She has no pain with light passive internal and external hip rotation. She is neurovascularly intact in the right lower extremity. Peripheral pulses 2+. Capillary refill is less than 2 seconds. Results & Data ([facility]) Vital Signs (Past 12 Hours) Vital Signs Temp Pulse Resp BP Pulse Ox 11/21/20 07:39 36.6 C 66 18 149/77 H 98 11/21/20 02:21 36.5 C 70 14 126/77 98 Laboratory Results 11/21/20 11/21/20 11/21/20 Range/Units 05:31 05:31 05:31 WBC 12.39 H (4.8-10.8) K/uL RBC 4.01 L (4.2-5.4) M/uL Hgb 12.9 (12.0-16.0) g/dL Hct 38.0 (37-47) % MCV 94.8 (80-100) fL MCH 32.2 (25-34) pg MCHC 33.9 (32-36) g/dL RDW Std Deviation 42.6 (36.4-46.3) fL RDW Coeff of [place] 12.4 (11.5-14.5) % Plt Count 210 (130-400) K/uL MPV 11.2 H (7.4-10.4) fL Immature Gran % (Auto) 0.3 % Neut % (Auto) 83.2 % Lymph % (Auto) 12.0 % [place] % (Auto) 4.4 % Eos % (Auto) 0.0 % Baso % (Auto) 0.1 % Neut # (Auto) 10.30 H (1.4-6.5) K/uL Lymph # (Auto) 1.49 (1.2-3.4) K/uL [place] # (Auto) 0.55 (0.11-0.59) K/uL Eos # (Auto) 0.00 (0-0.5) K/uL Baso # (Auto) 0.01 (0-0.2) K/uL Immature Gran # (Auto) 0.04 H (0.00-0.02) K/uL Sodium 137 (136-145) mmol/L Potassium 4.5 (3.5-5.1) mmol/L Chloride 102 (98-107) mmol/L Carbon Dioxide 27 (21-32) mmol/L Anion Gap 8.0 (3-11) BUN 13 (7-18) mg/dl Creatinine 0.62 (0.6-1.2) mg/dl Est Cr Clr Drug Dosing 77.8 ml/min Est GFR ( Amer) 103.0 ml/min Est GFR (Non-Af Amer) 88.8 ml/min BUN/Creatinine Ratio 21.7 H (10-20) Glucose 123 H (70-99) mg/dl Calcium 9.5 (8.5-10.1) mg/dl Hepatitis C Ab Screen Neg (Neg)
[2020-11-21] MEDS ORDERED: CeleBREX 200 MG CAP PO SCH (21:00)
--- NOTE | 2020-11-24 09:30 | Discharge Summary ---
Date of Service November 24, 2020 Admission HPI Per Admitting Provider History of Present Illness (including history relevant to procedure): This 74-year-old female presents the clinic today for preoperative history and physical. She has had issues with her hip for the last couple of years. She actually saw Dr. Robles a year and half ago, who gave her a troch bursa injection. She says this only lasted about 4 days. She then has gone on to work with a physical therapist. She has been doing PT for the last 4-5 months. She then ended up getting an x-ray recently. This showed [id number] arthritis in the right hip. atient reports the pain is worse in the lateral aspect of the hip. Only rarely does she feel it in the groin. It is better with rest, Aleve, Tylenol, and heat. Worse with walking. She enjoys walking her dogs for exercise. She has not had any other injections in the hip other than the one Dr. Robles gave her. She says the physical therapy has given her some relief. Denies any numbness or tingling. Review Of Systems: A 14 point review of systems performed is unremarkable except for those things stated in the HPI and past medical history. Past Medical History: Problems: Osteoarthritis of right hip Pre-op exam Right hip pain Seasonal affective disorder Bursitis of right hip Left knee pain Essential hypertension Mild asthma Chest congestion Anxiety GERD Obesity Procedure History Procedure Procedure Date Comments X-ray of left knee Dental implants 01/14/2020 - Negative study. Allergies and Sensitivities: traMADol(unknown) tapentadol(unknown) Opana(unknown) oxyCODONE(unknown) morphine(unknown) methadone(unknown) Demerol(unknown) Dilaudid(unknown) HYDROcodone(unknown) fentaNYL(unknown) Zoloft(unknown) Paxil(unknow) Luvox(unknown) PROzac(unknown) Lexapro(unknown) CeleXA(unknown) EPINEPHrine(heart palpations) Flagyl(nausea) codeine(nausea) nitrous oxide(combative) Current Home Meds: (Last Updated 10/28 15:42) ALPRAZolam (ALPRAZolam 0.5 mg oral tablet) 0.5 mg PO ONCE PRN: as needed for anxiety Take 1 tablet, if ineffective after 1/2 hour can take second tablet. acetaminophen (Tylenol) 1,000 mg PO q6h PRN: as needed for pain albuterol (ProAir HFA 90 mcg/inh inhalation aerosol) 2 puff inhaled qid PRN: as needed for wheezing biotin (biotin 5000 mcg oral tablet, disintegrating) PO Daily cholecalciferol (Vitamin D3 2000 intl units (50 mcg) oral capsule) estradiol topical (Estring 2 mg vaginal ring) flax (Flax Seed Oil) fluticasone nasal (Flonase 50 mcg/inh nasal spray) 1 spray each nostril Daily PRN: allergy symptoms gabapentin (gabapentin 300 mg oral capsule) 300 mg PO bid loratadine-pseudoephedrine (Claritin-D 12 Hour) 1 tab PO Daily mometasone (mometasone 110 mcg/inh inhalation aerosol powder) 1 puff inhaled qPM montelukast (montelukast 10 mg oral tablet) 10 mg PO qPM multivitamin 1 tab PO Daily omeprazole (omeprazole 20 mg oral delayed release capsule) 20 mg PO Daily ondansetron (Zofran 4 mg oral tablet) 32 mg PO q8h PRN: as needed for nausea/vomiting ubiquinone (Co Q-10) Admission Exam Per Admitting Provider Physical Exam: (relevant to the procedure, including heart and lung evaluation) General: Alert and oriented x3 with proper grooming and hygiene Eyes: Pupils are equal and reactive to light with accommodation. Extract movements are intact Throat: Deferred due to COVID-19 precautions Cardiac: Regular rate and rhythm with no murmurs or gallops appreciated Lungs: Clear to auscultation throughout no wheezing, rales or rhonchi Abdomen: Obese, nondistended, nontender with normal active bowel sounds Extremities: Right hip exam today reveals the patient to have significant tenderness to palpation over the trochanteric bursa. However, hip abductor strength is intact without any deficiencies or pain. She does have some stiffness, however, in the right hip with flexion limited to 105 degrees, external rotation to 50 degrees, and internal rotation to 0 degrees. Figure-4 testing reveals her knee to be 16 inches off the table. This is consistent with stiffness. Neuro: Cranial nerves II through XII are intact no motor or sensory deficit Skin: Normal appearance no open skin areas or discharge Principal Diagnosis Right hip osteoarthritis Discharge Exam Right hip: Outer dressing was removed. Silverlon is intact clean and dry. Patient does have some difficulty performing a straight leg raise test and flexing her knee to 90 degrees. She is able to actively dorsi and plantarflex h er foot. I watched her walk down the [place] with physical therapy and she did so easily. Quad strength is 3 out of 5. She experiences no pain with a logroll test. She has no pain with light passive internal and external hip rotation. She is neurovascularly intact in the right lower extremity. Peripheral pulses 2+. Capillary refill is less than 2 seconds. Discharge Data Allergies Allergy/AdvReac Type Severity Reaction Status Date / Time metronidazole AdvReac Severe NAUSEA Verified 11/20/20 07:56 nitrous oxide AdvReac Severe "jumpy, Verified 11/20/20 07:56 combative" Opioids-Meperidine and AdvReac Severe Nausea Verified 11/20/20 07:56 Related temazepam AdvReac Severe severe Verified 11/20/20 07:56 panic attack epinephrine AdvReac Intermediate "HEART Verified 11/20/20 07:56 RACES" hydrochlorothiazide AdvReac Unknown Unknown Verified 11/20/20 07:56 codeine AdvReac Nausea Verified 11/20/20 07:56 Procedures Performed Operation Date: 11/20/20 09:10 Actual Procedures p Right Total Hip Arthroplasty - uncemented(Right) - Myron Okeefe MD Hospital Course (1) S/P total hip arthroplasty: Patient had an uneventful overnight stay. She did very well with PT/OT. She states that she will be ready to go home after lunch. She plans on in-home PT for the first 2 weeks post operatively. Total hip precautions reviewed Weightbearing as tolerated with walker assistance PT/OT Pain control with p.o. medications DVT prophylaxis with aspirin and LAMBERTO stocking Ice with EZ wrap Abduction pillow use x6 weeks Keep Silverlon dressing in place Plan on discharge home today with in-home physical therapy for the first 2 weeks postoperatively Follow-up with [facility] orthoped[facility] previously scheduled With questions contact the clinic at [phone] Total Time Total Time Spent Total Time Spent (In Minutes): 20 mins Total Time Includes: Examination of the Patient, Discharge Planning, Medication Reconciliation and Communication With Other Providers Discharge Plan Discharge Items Patient Disposition: Home - Home Health Services Reason For Visit: Right Hip Arthritis Discharge Diagnosis: Right Hip Osteoarthritis Activity: As commented below Lifting: None Bathing: Keep incision dry Bathing Comment: May shower tomorrow Sexual Activity: Wait until after follow-up appointment Exercise/Sports: Wait until after follow-up appointment Driving/Machine Use: No driving until cleared by marketing support specialist Weightbearing: Right weightbearing Weightbearing Comment: as tolerated with walker assistance Non-emergency contact: Primary Care Provider Call non-emergency contact if: you have any medication questions, your pain is not controlled, your temperature is above 101.5, your wound has increased drainage and your wound pain has increased Follow-up/Referrals: Afsaneh Swann M.D. [Primary Care Provider] - Diet: Regular Addtl Attending Provider Instructions: Post-operative Instructions Dear Patient and Family/Friends, Before you are discharged from the hospital, it is important to know what to expect when you get home after surgery. To that end, we have created this sheet of discharge instructions which covers many commonly asked questions. Make sure you go through this sheet in its entirety with your nurse before you are discharged. Please note that we will go over the specifics of your surgery and recovery when you return for your first post-operative visit. Sincerely, Dr. Okeefe Medications 1. Tramadol 50 mg: take 1-2 tabs by mouth every 4-6 hours as needed for post operative pain relief. A prescription for 30 tabs will be sent to your pharmacy. 2. Diclofenac Sodium 75 mg: take one tab twice daily for 30 days post operatively for pain and inflammation relief. Do not use Naproxen while taking this medication. A prescription for this will be sent to your pharmacy with 1 refill. 3. Aspirin 81 mg: take one tab twice daily for 30 days post operatively for blood clot prevention. Please purchase. 4. Extra Strength Tylenol 500 mg: take 2 tabs every 6-8 hours as needed for additional supplemental pain relief. Please purchase. 5. Zofran 4 mg: Take 1 tablet every 8 hours as needed for nausea relief. A prescription for this medicine will be sent to your pharmacy. Pain Expect to be in a fair amount of pain after surgery. Remember, our goal is not to eliminate your pain, but to make it tolerable. It is a good idea to stay ahead of your pain by taking the medications you were prescribed once you get home. Typically, the pain starts improving 3-7 days after surgery. You should start weaning off the narcotic pain medication (oxycodone, hydrocodone, hydromorphone, morphine) as soon as your pain improves. Please call our office if your pain is not adequately controlled. Ice Ice your operative site at least 5 times a day for 15-30 minutes at a time. Make sure you have a thin cloth between the ice or cooling unit and your skin to prevent cervantes bite. This is especially important if you received a nerve block. Continue icing your operative site for the first 5-7 days after surgery, then as needed. Diet/Nausea/Vomiting Start by drinking clear liquids and eating crackers. If you can tolerate this, then you may resume your normal diet. If you feel nauseated or vomit, take Zofran/ondansetron (if prescribed). Please call our office if you have intractable nausea or vomiting, or, if after hours, you may go to the Emergency Room for help. Constipation Constipation is a common side effect of narcotic pain medication. If you have not had a bowel movement within 2 days after surgery, we recommend purchasing an over the counter laxative such as Milk of Magnesia, Dulcolax, or Miralax from a local pharmacy, and taking it as instructed. Call our clinic if any questions. Nerve block The anesthesia team sometimes places a nerve block to help with post-operative pain control. This results in significant numbness and inability to move the extremity. The nerve block usually wears off in 8-12 hours, but sometimes can last up to 24 hours. Please call our office if you are still unable to move your extremity after 24 hours, unless you received a pain pump to take home. Nerve blocks typically wear off quickly, so start taking pain medication as soon as you start feeling soreness near your surgical site. Weight bearing and Range of Motion. Do not bear any weight through your operative extremity immediately after surgery. If you had upper extremity surgery, do not lift anything with that arm. If you are in a knee brace, keep it locked in place until your follow-up. We will discuss your weight bearing, range of motion, and lifting restrictions in detail at your first post-operative appointment. Continuous Passive Motion (CPM) Machine If you were prescribed a CPM machine, it will start after your first post- operative appointment, at which time we will give you instructions on the range of motion settings and duration of treatment Physical therapy You will be given a prescription for physical therapy or occupational therapy at your first post-operative appointment. Typically, patients start therapy within 1 week of surgery Wound care and showering We will inspect your wound at your first post-operative visit, and may do a dressing change at that time. Most patients will be in a water-proof dressing that is removed 14 days after surgery. It is normal to see some dried blood on the dressing. Do not remove your dressing, paper strips or sutures yourself unless you are given permission. Showering is allowed the day after surgery. Do not scrub or remove any dressings. The wound should not be submerged underwater (i.e. in a bathtub or pool) until 4 weeks after surgery LAMBERTO stockings If you were given white stockings, these are to be worn at all times except to shower (on both legs) for the first 2 weeks after surgery. Driving You may not drive while taking narcotic pain medication or while in a cast, splint, sling or brace. You, the patient, need to make the final determination about when you are safe to drive, however, the earliest you may consider driving after surgery is below: Hand/Wrist/Elbow Surgery: 3 days Shoulder Surgery: 2 weeks Hip,/Knee/Ankle Surgery: 4 weeks Fracture repair: 6 weeks Return to Work Your return to work depends on what surgery was done and what type of work you do. Please bring any paperwork your employer needs completed to your first post-operative visit. Also, bring a description of your job duties, as this helps us to understand what risks you may face at work. Travel Avoid long distance travel (greater than 1 hour) in airplanes and cars for the first 6 weeks after surgery. If you must travel, you need to have a Doppler ultrasound done before you travel to rule out a blood clot in your legs. Follow-up You should have a follow-up appointment already scheduled 1-2 days after surgery. If not, please contact our office to make this appointment before you leave the hospital. When to call the office It is normal to have swelling and bruising in the limb that was operated on. This will improve with time. It is also normal to have fevers for the first 2 days after surgery. Reasons you should call your doctor include: Uncontrolled pain; Nausea, vomiting, or constipation that does not improve with medication; Fevers over 101.5, chills, sweats; Drainage or bleeding from the wound; Foul odor; Spreading areas of redness; Any other concerns Pending Studies at Discharge: No Stand-Alone Forms: [facility] Medications and DC Order Prescriptions: New tramadol 50 mg tablet 50 mg PO Q4H MDD Initial prescription Qty: 30 RF: 0 diclofenac sodium 75 mg tablet,delayed release (DR/EC) 75 mg PO BID 30 Days Qty: 60 RF: 1 ondansetron HCl [Zofran] 4 mg tablet 4 mg PO Q8H Qty: 14 RF: 0 Continued Asmanex Twisthaler 220 mcg/ actuation (120) aerosol powdr breath activated 1 inh inhalation QAM RF: 0 montelukast 10 mg tablet 10 mg PO QAM RF: 0 flaxseed oil 1,000 mg capsule 1,000 mg PO QAM RF: 0 acetaminophen 325 mg capsule 325 mg PO QID PRN (Reason: Pain) RF: 0 omeprazole 20 mg Capsule,Delayed Release(Dr/Ec) 20 mg PO DAILY PRN (Reason: Heartburn) RF: 0 multivitamin Tablet 1 tab PO QAM RF: 0 biotin 5 mg Capsule 5 mg PO QAM RF: 0 calcium carbonate [Tums] 300 mg (750 mg) Tablet,Chewable 300 mg PO BID PRN (Reason: Heartburn) RF: 0 fluticasone propionate [Flonase Allergy Relief] 50 mcg/actuation [place],Suspension 1 spray INTRANASAL QAM RF: 0 gabapentin 300 mg Tablet 600 mg PO HS RF: 0 cholecalciferol (vitamin D3) [Vitamin D3] 50 mcg (2,000 unit) Capsule 6,000 unit PO QAM RF: 0 albuterol sulfate [ProAir HFA] 90 mcg/actuation HFA aerosol inhaler 1 puff INHALATION PRN (Reason: Wheezing) RF: 0 Discontinued naproxen sodium 220 mg Tablet 220 mg PO BID RF: 0 No Action scopolamine base 1 mg over 3 days patch 3 day 1 patch transdermal Q72H Qty: 4 RF: 0 Discharge Orders: Discharge Order (Routine); Ordered 11/21/20 Ordered By: Sha Rodríguez/Other Patient Handouts: DVT Post Op Prevention Admission Data Admit Date/Time: 11/20/20 11:26 Attending Provider: Myron Okeefe Admit Provider: Myron Okeefe Primary Care Provider: Afsaneh Swann Other Providers: [facility],Home Healthcare Other Interventions: Discharge Summary Assessment (RN) Last Done: 11/21/20 11:10
== END 2020-11-21 15:43 | disposition home health service (06) ==
LOC: ASU 06:34 → 3E 06:34
DX: E66.9 Obesity, unspecified; Z79.899 Other long term (current) drug therapy; K21.9 Gastro-esophageal reflux disease without esophagitis; Z87.891 Personal history of nicotine dependence; M16.11 Unilateral primary osteoarthritis, right hip; Z88.8 Allergy status to other drugs, medicaments and biological substances; J45.909 Unspecified asthma, uncomplicated; I10 Essential (primary) hypertension; Z20.822 Contact with and (suspected) exposure to COVID-19; Z88.5 Allergy status to narcotic agent; Z68.34 Body mass index [BMI] 34.0-34.9, adult

== ENCOUNTER 2024-09-13 05:46 | Observation (INO) ==
--- NOTE | 2024-08-27 15:46 | PAT Medication Instructions ---
Medication Instructions Date of Service August 27, 2024 Home Medications acetaminophen 325 mg capsule 325 mg PO QID PRN Pain flaxseed oil 1,000 mg capsule 1,000 mg PO QAM mometasone 220 mcg/actuation(120 doses)breath activated powder inhaler (Asmanex Twisthaler) 1 inh inhalation UD PRN asthma montelukast 10 mg tablet 10 mg PO UD PRN asthma biotin 5 mg capsule 5 mg PO QAM calcium carbonate (Tums) 300 mg PO BID PRN Heartburn cholecalciferol (vitamin D3) 50 mcg (2,000 unit) capsule (Vitamin D3) 6,000 unit PO QAM fluticasone propionate 50 mcg/actuation nasal spray,suspension (Flonase Allergy Relief) 1 spray intranasal UD PRN Nasal Congestion multivitamin 1 tab PO QAM albuterol sulfate 90 mcg/actuation aerosol inhaler (ProAir HFA) 1 puff inhalation UD PRN asthma diclofenac sodium 75 mg tablet,delayed release 75 mg PO QAM duloxetine 60 mg capsule,delayed release 120 mg PO QAM melatonin 10 mg tablet 10 mg PO HS trazodone 100 mg tablet 150 mg PO HS brexpiprazole 1 mg tablet (Rexulti) 0.5 mg PO BID coenzyme Q10 100 mg capsule (CoQ-10) 200 mg PO QAM estradiol 2 mg (7.5 mcg/24 hour) vaginal ring (Estring) See Rx Instructions .Route .COMPLEX gabapentin 400 mg tablet 400 mg PO HS Continue as directed mometasone 220 mcg/actuation(120 doses)breath activated powder inhaler (Asmanex Twisthaler) 1 inh inhalation UD PRN asthma (if needed) montelukast 10 mg tablet 10 mg PO UD PRN asthma (if needed) fluticasone propionate 50 mcg/actuation nasal spray,suspension (Flonase Allergy Relief) 1 spray intranasal UD PRN Nasal Congestion (if needed) ASK your surgeon for instructions diclofenac sodium 75 mg tablet,delayed release 75 mg PO QAM ASK your prescriber and surgeon estradiol 2 mg (7.5 mcg/24 hour) vaginal ring (Estring) See Rx Instructions .Route .COMPLEX STOP taking 2 weeks before surgery (or as soon as possible): flaxseed oil 1,000 mg capsule 1,000 mg PO QAM biotin 5 mg capsule 5 mg PO QAM coenzyme Q10 100 mg capsule (CoQ-10) 200 mg PO QAM DO NOT take the morning of surgery calcium carbonate (Tums) 300 mg PO BID PRN Heartburn cholecalciferol (vitamin D3) 50 mcg (2,000 unit) capsule (Vitamin D3) 6,000 unit PO QAM multivitamin 1 tab PO QAM Take morning of surgery With a small sip of water, OTHERWISE NOTHING TO EAT OR DRINK AFTER MIDNIGHT: acetaminophen 325 mg capsule 325 mg PO QID PRN Pain (if needed) albuterol sulfate 90 mcg/actuation aerosol inhaler (ProAir HFA) 1 puff inhalation UD PRN asthma (use if needed; please bring with you to hospital day of surgery if possible) duloxetine 60 mg capsule,delayed release 120 mg PO QAM brexpiprazole 1 mg tablet (Rexulti) 0.5 mg PO BID Take evening before surgery acetaminophen 325 mg capsule 325 mg PO QID PRN Pain (if needed) calcium carbonate (Tums) 300 mg PO BID PRN Heartburn (if needed) albuterol sulfate 90 mcg/actuation aerosol inhaler (ProAir HFA) 1 puff inhalation UD PRN asthma melatonin 10 mg tablet 10 mg PO HS trazodone 100 mg tablet 150 mg PO HS brexpiprazole 1 mg tablet (Rexulti) 0.5 mg PO BID gabapentin 400 mg tablet 400 mg PO HS Other Notes If you have any questions please call us at [phone] or [phone] or [phone] or [phone]
--- NOTE | 2024-08-29 09:34 | Anesthesiology Consultation ---
Date of Service August 29, 2024 Assessment & Plan (1) Encounter for pre-operative examination: Chart Review Chart Review: Acceptable Risk for Surgery (pending surgeon ordered PCP clearance 09/05/24) and Patient seen in Pre Admission Testing - Awaiting PCP clearance 09/05/24 (Alma Delia Christo- [facility]) All opioids cause nausea Patient with panic attack prior to right MASSIEL 2020- patient will discuss with PCP about possibly getting a benzodiazepine prior to surgery. (During PAT appt- patient declined wanting to hear about SAB vs GA- will discuss with anesthesiologist DOS) Pt currently scheduled as 23 hours observation. If surgeon decides to change patient to Same Day Joint, patient would be acceptable risk for MASSIEL, pending patient is motivated, has good support and surgeon's office completes [facility] Day [facility] Program preop requirements. Per PAT appt on 08/29/24, no recent illness/disease exposures, illness related symptoms, or recent illness/disease positive tests. Will leave to surgeon's discretion if preop Covid testing needed Right MASSIEL 11/20/20= Done under SAB at L3-4 with 1 attempt Teaching & Discussion Pre-Anesthesia Teaching/Discussion Notes: Instructed NPO after midnight before surgery,except medications with 15 cc of water. Medication instructions provided according to the PAT guidelines. History Surgery Operation Date: 09/13/24 07:00 Proposed Procedures p Left Total Hip Arthroplasty - Myron Okeefe MD Height/Weight Height: 5 ft 2 in Weight: 88.9 kg Allergies Allergy/AdvReac Type Severity Reaction Status Date / Time codeine AdvReac Severe Nausea Verified 08/27/24 15:18 nitrous oxide AdvReac Severe "jumpy, Verified 08/27/24 15:18 combative" Opioids-Meperidine and AdvReac Severe Nausea Verified 08/27/24 15:18 Related temazepam AdvReac Severe severe Verified 08/27/24 15:18 panic attack epinephrine AdvReac Unknown "HEART Verified 08/27/24 15:18 RACES" hydrochlorothiazide AdvReac Unknown pt doesn't Verified 08/27/24 15:18 remember anything about that med metronidazole AdvReac Unknown NAUSEA Verified 08/27/24 15:18 Additional Notes: (Opioids cause nausea- patient will discuss with surgeon) Medications Home Medications Medication Instructions Recorded Confirmed Last Taken acetaminophen 325 mg capsule 325 mg PO QID PRN Pain 06/27/20 08/27/24 12/03/20 flaxseed oil 1,000 mg capsule 1,000 mg PO QAM 06/27/20 08/27/24 11/13/20 mometasone 220 mcg/actuation(120 1 inh inhalation UD PRN asthma 06/27/20 08/27/24 11/18/20 08:00 doses)breath activated powder inhaler (Asmanex Twisthaler) montelukast 10 mg tablet 10 mg PO UD PRN asthma 06/27/20 08/27/24 11/19/20 08:00 biotin 5 mg capsule 5 mg PO QAM 10/22/20 08/27/24 11/19/20 08:00 calcium carbonate (Tums) 300 mg PO BID PRN Heartburn 10/22/20 08/27/24 11/17/20 cholecalciferol (vitamin D3) 50 6,000 unit PO QAM 10/22/20 08/27/24 11/19/20 08:00 mcg (2,000 unit) capsule (Vitamin D3) fluticasone propionate 50 1 spray intranasal UD PRN Nasal 10/22/20 08/27/24 11/18/20 08:00 mcg/actuation nasal Congestion spray,suspension (Flonase Allergy Relief) multivitamin 1 tab PO QAM 10/22/20 08/27/24 11/19/20 08:00 albuterol sulfate 90 mcg/actuation 1 puff inhalation UD PRN asthma 10/29/20 08/27/24 11/06/20 aerosol inhaler (ProAir HFA) diclofenac sodium 75 mg 75 mg PO QAM 12/28/22 08/27/24 Unknown tablet,delayed release duloxetine 60 mg capsule,delayed 120 mg PO QAM 12/28/22 08/27/24 Unknown release melatonin 10 mg tablet 10 mg PO HS 12/28/22 08/27/24 Unknown trazodone 100 mg tablet 150 mg PO HS 12/28/22 08/27/24 Unknown brexpiprazole 1 mg tablet (Rexulti) 0.5 mg PO BID 08/27/24 08/27/24 Unknown coenzyme Q10 100 mg capsule 200 mg PO QAM 08/27/24 08/27/24 Unknown (CoQ-10) estradiol 2 mg (7.5 mcg/24 hour) See Rx Instructions .Route .COMPLEX 08/27/24 08/27/24 Unknown vaginal ring (Estring) gabapentin 400 mg tablet 400 mg PO HS 08/27/24 08/27/24 Unknown Past Medical History Medical History Acid reflux hx/diet controlled. Anxiety Asthma well controlled. Borderline high cholesterol Depression History of anesthesia reaction R MASSIEL: per pt 'once anesthesia started did fine, but had severe panic attack during preop' Osteoarthritis Presence of tooth-root and mandibular implants Sciatica Improved with PT Exercise / Class Metabolic Activity II 4-5 Yardwork/Stairs/Walk up hill (one flight of stairs - no chest pain or SOB ) Past Family History Family History Other Diabetes Heart disease No family history of adverse response to anesthesia Past Surgical History Surgical History History of cataract surgery B/L History of esophagogastroduodenoscopy (EGD) History of total right hip replacement 11/2020: SAB: L3/4 x 1 attempt Hx of oral surgery x2 teeth implants Past Anesthesia History No Hx of Anesthesia Complications (with exception to panic attack preop prior to MASSIEL ) and No Family Hx of Anesthesia Complications (with exception to mother - remote history of post op confusion ) History of PONV No Hx of PONV and Hx of Motion Sickness Social History Smoking Status: Former smoker tobacco type: cigarettes Do You Dip or Chew Tobacco: No Smoking End Date: Quit Hx Alcohol Use: No Hx Substance Use: No substance use type: does not use Review of Systems - Mild CORTES due to hip pain - Hx of snoring- hx of sleep study (around 2016)- no SANAZ Patient denies chest pain, shortness of breath, cough, wheezing, palpitations. No hx of seizures, stroke, MA. No hx of blood clots or blood transfusions Physical Exam Vital Signs VITALS BP 113/74 P 70 TEMP 97.8 SP02 96% RESP 16 Constitutional no acute distress ENMT Mouth: no TMJ clicking Thyromental Distance: < 3.5 Finger Breadths (3.0) Mallampati Class: III Caps and crowns to front teeth Permanent implants to side teeth Neck neck extension not limited Respiratory normal respiratory effort; no respiratory distress Auscultation: lungs clear to auscultation bilaterally; no wheezes Cardiovascular Rate/Rhythm: regular rate and regular rhythm Heart Sounds: no murmur Vessels: no carotid bruit Musculoskeletal Spine: no pain with cervical ROM Extremities: extremities normal to inspection Psychiatric Orientation: alert Lab Results Anesthesia Preop Results Results Anesthesia Widget: WBC 5.55 K/ul (4.8-10.8) 08/11/24 Hgb 14.5 g/dl (12.0-16.0) 08/11/24 Hct 43.2 % (37.0-47.0) 08/11/24 Plt 218 K/uL (130-400) 08/11/24 Na 138 mmol/L (136-145) 08/11/24 K 4.3 mmol/L (3.5-5.1) 08/11/24 Cl 101 mmol/L (98-107) 08/11/24 CO2 32 mmol/L (21-32) 08/11/24 BUN 17 mg/dl (6-23) 08/11/24 Creat 0.80 mg/dl (0.6-1.2) 08/11/24 Glucose Level 101 mg/dl (70-99(Fasting)) H 08/11/24 PT 10.2 Seconds (9.0-12.0) 08/29/24 PTT 24 Seconds (21-31) 08/29/24 INR 0.9 (0.9-1.1) 08/29/24 HA1c 5.5 % (4.5-5.6) 08/11/24 Urine Color Yellow 08/29/24 Urine Appearance Clear (Clear) 08/29/24 Urine pH 5.5 (4.5-7.5) 08/29/24 Urine Specific [place] 1.025 (1.000-1.030) 08/29/24 Urine Protein Negative (Negative) 08/29/24 Urine Glucose (UA) Negative (Negative) 08/29/24 Urine Ketones Trace (Negative) H 08/29/24 Urine Blood Negative (Negative) 08/29/24 Urine Nitrite Negative (Negative) 08/29/24 Urine Bilirubin Negative (Negative) 08/29/24 Urine Urobilinogen Negative (Negative) 08/29/24 Urine Leukocyte Esterase Negative (Negative) 08/29/24 Blood Type B Positive 08/29/24 Antibody Screen NEGATIVE 08/29/24 Testing Electrocardiogram Date: 08/29/24 Findings: + NSR @ (65bpm) Normal EKG per cardio
--- NOTE | 2024-08-29 14:39 | History & Physical Report ---
Date of Service August 29, 2024 Assessment & Plan (1) Osteoarthritis of left hip: Plan: PRE-OP Diagnosis: Left hip osteoarthritis Planned Procedure: Left total hip arthroplasty Plan: Patient is scheduled to undergo this procedure at the [facility] with Dr. Okeefe on September. Risks and complications of the procedure such as: Infection, bleeding, pain, scarring, nerve blood vessel damage, weakness, wound problems, stiffness, incomplete relief of symptoms, hardware failure, hardware loosening, wear, fracture, tendon or ligament injury, dislocation, leg length inequality, blood clots, Embolism, heart attack, stroke and were explained to the patient at her visit today. Informed consent to perform the procedure was obtained. Patient had an appointment to meet with anesthesia earlier today and while there she obtained a CBC with differential, complete metabolic panel, PT/INR, blood type and screen, urinalysis, urine culture and sensitivity, EKG, and a nasal culture for MRSA. Patient will also need preoperative medical clearance from their primary care provider Alma Delia Villafuerte. Patient states she has an appointment scheduled for next week. Patient states that she plans on doing in-home physical therapy for the first 1 to 2 weeks postoperatively and then will transition to back to life physical therapy. Patient has a walker, raised toilet seat, shower chair and a hip kit. During today's visit we reviewed the total hip packet as well as precautions. We discussed discharge planning from the hospital. I provided paperwork to obtain a handicap placard for their vehicle. We discussed lectures offered by [facility] in regards to joint replacement surgery via Zoom. I advised the patient that upon discharge from hospital we will prescribe a narcotic pain medication and anti-inflammatory. Patient will also be on an 81 mg aspirin twice daily for blood clot prevention. Patient will be scheduled for 2-week postoperative follow-up visit with myself on September 26. This chart was completed utilizing [employer] voice recognition software. Grammatical errors, random word insertions, pronoun errors, and in complete sentences are an occasional consequence of the system. Any questions or concerns about the content, text, or information contained within the body of this dictation should be addressed directly to the physician for clarification. History of Present Illness Chief Complaint: Chief Complaint: Left hip pain Primary Care Provider: NO PCP History of Present Illness (including history relevant to procedure): This 78-year-old female presents the clinic today for preoperative history and physical. Patient complains of left-sided hip and groin pain since last January. She states she has been taking diclofenac once a day, aspirin 3 times a day, and Tylenol 2-3 times per day for it. Patient states she is also having trouble putting on her left sock and shoe. She states her hip feels similar to her right hip before she had it replaced. Patient states that Dr. Okeefe replaced her right hip in 2020 and she is having great results of the surgery. Patient is electing to proceed with surgical intervention for her left hip osteoarthritis. Review Of Systems: A 12 point review of systems is performed and is unremarkable except for those things stated in the HPI and past medical history. Past Medical History: Problems: Dysuria Asthma with exacerbation Swelling of right foot Osteoarthritis of right hip Pre-op exam Right hip pain Seasonal affective disorder Bursitis of right hip Left knee pain Essential hypertension Mild asthma Chest congestion Anxiety GERD Procedure History Procedure Procedure Date Comments Shave biopsy 03/11/2022 Chest X-ray 02/12/2022 - No acute process X-ray of left knee Right total hip arthroplasty 01/14/2020 - Negative study. Allergies and Sensitivities: traMADol(unknown) tapentadol(unknown) Opana(unknown) oxyCODONE(unknown) morphine(unknown) methadone(unknown) Demerol(unknown) Dilaudid(unknown) HYDROcodone(unknown) fentaNYL(unknown) Zoloft(unknown) Paxil(unknow) Luvox(unknown) PROzac(unknown) Lexapro(unknown) CeleXA(unknown) EPINEPHrine(heart palpations) Flagyl(nausea) codeine(nausea) nitrous oxide(combative) Current Home Meds: (Last Updated 08/29 11:44) DULoxetine (DULoxetine 60 mg oral delayed release capsule) 120 mg PO Daily LORazepam (Ativan 1 mg oral tablet) 2 mg PO As indicated preop acetaminophen (Tylenol) 1,000 mg PO q6h PRN: as needed for pain albuterol (ProAir HFA 90 mcg/inh inhalation aerosol) 2 puff inhaled qid PRN: as needed for wheezing amoxicillin-clavulanate (Augmentin 875 mg-125 mg oral tablet) 1 tab PO q12h amoxicillin (amoxicillin 500 mg oral capsule) 2,000 mg PO As indicated one hour before dental and other procedures as directed biotin (biotin 5000 mcg oral tablet, disintegrating) PO Daily cholecalciferol (Vitamin D3 2000 intl units (50 mcg) oral capsule) diclofenac (diclofenac sodium 75 mg oral delayed release tablet) TAKE 1 TABLET TWICE A DAY WITH FOOD NEEDED FOR PAIN estradiol topical (Estring 2 mg vaginal ring) flax (Flax Seed Oil) fluticasone nasal (Flonase 50 mcg/inh nasal spray) 1 spray each nostril Daily PRN: allergy symptoms gabapentin (gabapentin 300 mg oral capsule) 900 mg PO Daily gabapentin (gabapentin 300 mg oral capsule) 300 mg PO qhs loratadine-pseudoephedrine (Claritin-D 12 Hour) 1 tab PO Daily melatonin mometasone (mometasone 220 mcg/inh inhalation aerosol powder) 220 mcg inhaled qPM multivitamin 1 tab PO Daily traZODone (traZODone 150 mg oral tablet) 150 mg PO qhs Initial Wt: 08/29 89.0 kg 196 lb Allergies Allergy/AdvReac Type Severity Reaction Status Date / Time codeine AdvReac Severe Nausea Verified 08/27/24 15:18 nitrous oxide AdvReac Severe "jumpy, Verified 08/27/24 15:18 combative" Opioids-Meperidine and AdvReac Severe Nausea Verified 08/27/24 15:18 Related temazepam AdvReac Severe severe Verified 08/27/24 15:18 panic attack epinephrine AdvReac Unknown "HEART Verified 08/27/24 15:18 RACES" hydrochlorothiazide AdvReac Unknown pt doesn't Verified 08/27/24 15:18 remember anything about that med metronidazole AdvReac Unknown NAUSEA Verified 08/27/24 15:18 Home Medications Medication Instructions Recorded Confirmed Type acetaminophen 325 mg capsule 325 mg PO QID PRN Pain 06/27/20 08/27/24 History flaxseed oil 1,000 mg capsule 1,000 mg PO QAM 06/27/20 08/27/24 History mometasone 220 mcg/actuation(120 1 inh inhalation UD PRN asthma 06/27/20 08/27/24 History doses)breath activated powder inhaler (Asmanex Twisthaler) montelukast 10 mg tablet 10 mg PO UD PRN asthma 06/27/20 08/27/24 History biotin 5 mg capsule 5 mg PO QAM 10/22/20 08/27/24 History calcium carbonate (Tums) 300 mg PO BID PRN Heartburn 10/22/20 08/27/24 History cholecalciferol (vitamin D3) 50 6,000 unit PO QAM 10/22/20 08/27/24 History mcg (2,000 unit) capsule (Vitamin D3) fluticasone propionate 50 1 spray intranasal UD PRN Nasal 10/22/20 08/27/24 History mcg/actuation nasal Congestion spray,suspension (Flonase Allergy Relief) multivitamin 1 tab PO QAM 10/22/20 08/27/24 History albuterol sulfate 90 mcg/actuation 1 puff inhalation UD PRN asthma 10/29/20 08/27/24 History aerosol inhaler (ProAir HFA) diclofenac sodium 75 mg 75 mg PO QAM 12/28/22 08/27/24 History tablet,delayed release duloxetine 60 mg capsule,delayed 120 mg PO QAM 12/28/22 08/27/24 History release melatonin 10 mg tablet 10 mg PO HS 12/28/22 08/27/24 History trazodone 100 mg tablet 150 mg PO HS 12/28/22 08/27/24 History brexpiprazole 1 mg tablet (Rexulti) 0.5 mg PO BID 08/27/24 08/27/24 History coenzyme Q10 100 mg capsule 200 mg PO QAM 08/27/24 08/27/24 History (CoQ-10) estradiol 2 mg (7.5 mcg/24 hour) See Rx Instructions .Route .COMPLEX 08/27/24 08/27/24 History vaginal ring (Estring) gabapentin 400 mg tablet 400 mg PO HS 08/27/24 08/27/24 History Past Med/Surg History Problem List (Updated 08/29/24 @ 14:38 by Sha Taylor PA-C) Osteoarthritis of left hip S/P total hip arthroplasty (Acute) Encounter for pre-operative examination Left knee DJD Left knee pain 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 Osteoarthritis Depression Anxiety Presence of tooth-root and mandibular implants Asthma well controlled. Sciatica Improved with PT Surgical History History of cataract surgery B/L History of total right hip replacement 11/2020: SAB: L3/4 x 1 attempt History of esophagogastroduodenoscopy (EGD) Hx of oral surgery x2 teeth implants Family History Other Diabetes Heart disease No family history of adverse response to anesthesia Social History Smoking Status: Former smoker Second Hand Exposure: No; Do You Dip or Chew Tobacco: No; Hx Alcohol Use: No Hx Substance Use: No Preferred Language: Turkish Communication Ability: Effective Hris Manager Required: No Beliefs That Will Affect Care: None marital status: / Current Living Situation: Alone current occupational status: retired Feels Safe at Home: Yes Assistive Devices: Glasses Review of Systems All systems reviewed & are unremarkable except as noted in Subjective Physical Exam Physical Exam: Physical Exam: (relevant to the procedure, including heart and lung evaluation) General: Alert and oriented x 3 with proper grooming and hygiene Eyes: Pupils are equal and reactive to light with accommodation. Extraocular movements are intact Neck: Posterior oropharynx clear with absence of edema, erythema or exudate Cardiac: Regular rate and rhythm no murmurs or gallops appreciated Lungs: Clear to auscultation throughout with no wheezing, rales or rhonchi Abdomen: Mildly obese, nondistended, nontender with normal active bowel sounds Extremities: Hip; flexion up to 95 degrees, external rotation of 30 degrees and internal rotation is 0. Positive Preet and impingement test. Slight antalgic gait. Neurovascularly intact. Logroll test negative. Straight leg raise test negative. Tenderness to palpation in the groin and lateral aspect of her hip. Neuro: Cranial nerves II through XII are intact with no motor or sensory deficit Skin: Normal appearance with no open skin areas or discharge Results & Data Diagnostic Findings Studies (relevant to the procedure): X-rays done include an AP pelvis, false profile, and crosstable lateral of the left hip. These are compared with her prior films done less than 1 year ago. There is been interval loss of her left joint space to near [id number]. Continues to show marginal osteophytes and subchondral sclerosis. Findings consistent with severe left hip osteoarthritis.
--- OUTSIDE RECORDS SUMMARY | 2024-09-13 05:57 | External Medical Summary | Continuity of Care Document ---
Author Name Unknown Organization [facility] [address] [id number] Address [address] [place] [phone] Support Name Relationship Address Phone WALTER CORONA niece/nephew Unknown Unavailable MARU JOSIE, MATT niece/nephew Unknown Unavailab le JOSIE, MOIZ Personal Relationship Unknown Unavailable Encounter [facility] [id number] Date(s): 08/29/24 - 08/29/24 [facility] [address] [facility] [address] [facility] [address] [address] [place] [phone] Encounter Diagnosis Pre-op exam(Discharge Diagnosis) - 08/29/24 Osteoarthritis of left hip(Discharge Diagnosis) - 08/29/24 Discharge Disposition: Home or Self Care Attending Physician: LISA Taylor Dennis Referring Physician: MD Maldonado, Myron Wilkinson Encounter Type: Clinic Allergies, Adverse Reactions, Alerts Substance Criticality Severity Reaction Reaction Severity Status codeine nausea Active methadone unknown Active PROzac unknown Active morphine unknown Active nitrous oxide combative Active Luvox unknown Active HYDROcodone unknown Active Zoloft unknown Active Flagyl nausea Active Dilaudid unknown Active Paxil unknow Active Opana unknown Active Demerol unknown Active Lexapro unknown Active tapentadol unknown Active EPINEPHrine heart palpations A ctive oxyCODONE unknown Active fentaNYL unknown Active traMADol unknown Active CeleXA unknown Active Immunizations Given and Recorded Vaccine Date Status Refusal Reason influenza virus vaccine, inactivated 03/02/22 Give n tetanus/diphtheria/pertuss, acel (Tdap) 1 03/26/11 Recorded tetanus toxoids-diphtheria, Td (Adult) 2 01/25/05 Recorded tetanus toxoids-diphtheria, Td (Adult) 3 05/04/94 Recorded 1Result Comment: 2022-02-12: Historical information-source unspecified 2Result Comment: 2022-02-12: Historical information-source unspecified 3Result Comment: 2022-02-12: Historical information-source unspecified Mental Status 08/29/24 Barriers to Learning one year None evide nt Mandatory Health Literacy Documentation Yes Health Literacy Communication Barriers N ever Primary Language Nepali Problem List Condition Confirmation Course Effective Dates Status H ealth Status Informant Asthma with exacerbation Confirmed Active Bursitis of right hip Confirmed Active Dysuria Confirmed Active Essential hypertension Confirmed Active Right hip pain Confirmed Active Left knee pain Confirmed Active Mild asthma Confirmed Active Osteoarthritis of right hip Confirmed Active Pre-op exam Confirmed Active Chest congestion Confirmed Active Seasonal affective disorder Confirmed Active Swelling of right foot Confirmed Active Diagnosis Diagnosis Type Effective Dates Health Status Clinical Service Informant Osteoarthritis of left hip Discharge Diagnosis 08/29/24 Pre-op exam Discharge Diagnosis 08/29/24 Procedures Procedure Date Related Diagnosis Body Site Status Shave biopsy 03/11/22 Completed Chest X-ray 1 02/12/22 Completed X-ray of left knee 2 01/14/20 Comp leted 1No acute process 2Negative study. Vital Signs Most recent to oldest [Reference Range]: 1 Height 160 cm (08/29/24 11:15 AM) Patient Weight 89.0 kg (08/29/24 11:15 AM) Body Mass Index 34.77 kg/m2 (08/29/24 11:15 AM) Temperature [36.5-37.9 DegC] 36.4 DegC *LOW* (08/29/24 11:15 AM) Respiratory Rate 20 br/min (08/29/24 11:15 AM) Blood Pressure 120/74mmHg (08/29/24 11:15 AM) Cuff Pulse Pressure 46 mmHg (08/29/24 11:15 AM) Social History Social History Type Response Smoking Status Never smoked cigaret kamilah Sex Female Sex Representation Female (finding) Pre-OP H & P * LISA Taylor Dennis: PERFORM Event Display: Pre-OP H & P Authored Date: [id number] PRE-OPERATIVE HISTORY AND PHYSICAL Name: FLO RODRIGUEZ Patient Number: [id number] : 1945 Date of Service: 08/29/2024 PRE-OP Diagnosis: Left hip osteoarthritis Planned Procedure: Left total hip arthroplasty Chief Complaint: Left hip pain History of Present Illness (including history relevant to procedure): This 78-year-old female presents the clinic today for preoperative history and physical. Patient complains of left-sided hip and groin pain since last January. She states she has been taking diclofenac once a day, aspirin 3 times a day, and Tylenol 2-3 times per day for it. Patient states she is also having trouble putting on her left sock and shoe. She states her hip feels similar to her right hip before she had it replaced. Patient states that Dr. Okeefe replaced her right hip in 2020 and she is having great results ofthe surgery. Patient is electing to proceed with surgical intervention for her left hip osteoarthritis. Review Of Systems: A 12 point review of systems is performed and is unremarkable except for those things stated in the HPI and past medical history. Past Medical History: Problems: Dysuria Asthma with exacerbation Swelling of right foot Osteoarthritis of right hip Pre-op exam Right hip pain Seasonal affective disorder Bursitis of right hip Left knee pain Essential hypertension Mild asthma Chest congestion Anxiety GERD Procedure History Procedure Procedure Date Comments Shave biopsy 03/11/2022 Chest X-ray 02/12/2022 - No acute process X-ray of left knee Right total hip arthroplasty 01/14/2020 - Negative study. Allergies and Sensitivities: traMADol(unknown) tapentadol(unknown) Opana(unknown) oxyCODONE(unknown) morphine(unknown) methadone(unknown) Demerol(unknown) Dilaudid(unknown) HYDROcodone(unknown) fentaNYL(unknown) Zoloft(unknown) Paxil(unknow) Luvox(unknown) PROzac(unknown) Lexapro(unknown) CeleXA(unknown) EPINEPHrine(heart palpations) Flagyl(nausea) codeine(nausea) nitrous oxide(combative) Current Home Meds: (Last Updated 08/29 11:44) DULoxetine (DULoxetine 60 mg oral delayed release capsule) 120 mg PO Daily LORazepam (Ativan 1 mg oral tablet) 2 mg PO As indicated preop acetaminophen (Tylenol) 1,000 mg PO q6h PRN: as needed for pain albuterol (ProAir HFA 90 mcg/inh inhalation aerosol) 2 puff inhaled qid PRN: as needed for wheezing amoxicillin-clavulanate (Augmentin 875 mg-125 mg oral tablet) 1 tab PO q12h amoxicillin (amoxicillin 500 mg oral capsule) 2,000 mg PO As indicated one hour before dental and other procedures as directed biotin (biotin 5000 mcg oral tablet, disintegrating) PO Daily cholecalciferol (Vitamin D3 2000 intl units (50 mcg) oral capsule) diclofenac (diclofenac sodium 75 mg oral delayed release tablet) TAKE 1 TABLET TWICE A DAY WITH FOOD NEEDED FOR PAIN estradiol topical (Estring 2 mg vaginal ring) flax (Flax Seed Oil) fluticasone nasal (Flonase 50 mcg/inh nasal spray) 1 spray each nostril Daily PRN: allergy symptoms gabapentin (gabapentin 300 mg oral capsule) 900 mg PO Daily gabapentin (gabapentin 300 mg oral capsule) 300 mg PO qhs loratadine-pseudoephedrine (Claritin-D 12 Hour) 1 tab PO Daily melatonin mometasone (mometasone 220 mcg/inh inhalation aerosol powder) 220 mcg inhaled qPM multivitamin 1 tab PO Daily traZODone (traZODone 150 mg oral tablet) 150 mg PO qhs Vitals: Last Updated 08/29/24 11:15 Weights: Last Updated 08/29/24 11:15 Date Temp Pulse BP RR SpO2 FIO2 Date Wt(kg) Wt(lb) 08/29 11:15 36.4 120/74 20 99 08/29 11:15 89.0 196 08/29 11:15 89.0 196 24 Hr Tmax: 36.4 at 08/29 11:15 Initial Wt: 08/29 89.0 kg 196 lb Physical Exam: (relevant to the procedure, including heart and lung evaluation) General: Alert and oriented x 3 with proper grooming and hygiene Eyes: Pupils are equal and reactive to light with accommodation. Extraocular movements are intact Neck: Posterior oropharynx clear with absence of edema, erythema or exudate Cardiac: Regular rate and rhythm no murmurs or gallops appreciated Lungs: Clear to auscultation throughout with no wheezing, rales or rhonchi Abdomen: Mildly obese, nondistended, nontender with normal active bowel sounds Extremities: Hip; flexion up to 95 degrees, external rotation of 30 degrees and internal rotation is 0. Positive Preet and impingement test. Slight antalgic gait. Neurovascularly intact. Logroll testnegative. Straight leg raise test negative. Tenderness to palpation in the groin and lateral aspectof her hip. Neuro: Cranial nerves II through XII are intact with no motor or sensory deficit Skin: Normal appearance with no open skin areas or discharge Studies (relevant to the procedure): X-rays done include an AP pelvis, false profile, and crosstable lateral of the left hip. These are compared with her prior films done less than 1 year ago. There is been interval loss of her left joint space to near [id number]. Continues to show marginal osteophytes and subchondral sclerosis. Findings consistent with severe left hip osteoarthritis. Plan: Patient is scheduled to undergo this procedure at the [facility] with Dr. Okeefe on September. Risks and complications of the procedure such as: Infection, bleeding, pain, scarring, nerve blood vessel damage, weakness, wound problems, stiffness, incompleterelief of symptoms, hardware failure, hardware loosening, wear, fracture, tendon or ligament injury, dislocation, leg length inequality, blood clots, Embolism, heart attack, stroke and were explained to the patient at her visit today. Informed consent to perform the procedure was obtained. Patient had an appointment to meet with anesthesia earlier today and while there she obtained a CBC with differential, complete metabolic panel, PT/INR, blood type and screen, urinalysis, urine culture and sensitivity, EKG, and a nasal culture for MRSA. Patient will also need preoperative medical clearance from their primary care provider Alma Delia Villafuerte. Patient states she has an appointment scheduledfor next week. Patient states that she plans on doing in-home physical therapy for the first 1 to 2weeks postoperatively and then will transition to back to life physical therapy. Patient has a walker, raised toilet seat, shower chair and a hip kit. During today's visit we reviewed the total hip packet as well as precautions. We discussed discharge planning from the hospital. I provided paperwork to obtain a handicap placard for their vehicle. We discussed lectures offered by [facility] in regards to joint replacement surgery via Zoom. I advised the patient that upon discharge from hospital we will prescribe a narcotic pain medication and anti-inflammatory. Patient will also be on an 81 mg aspirin twice daily for blood clot prevention. Patient will be scheduled for 2-week postoperative follow-up visit with myself on September 26. This chart was completed utilizing [employer] voice recognition software. Grammatical errors,random word insertions, pronoun errors, and in complete sentences are an occasional consequence of the system. Any questions or concerns about the content, text, or information contained within the body of this dictation should be addressed directly to the physician for clarification. Electronic Signature on File Electronically Reviewed/Signed by: Sha Taylor PA-C Author Signature Dt/Tm:08/29/2024 02:27 PM Division of Sports Medicine Electronically Reviewed/Signed by: Myron Okeefe MD Cosigner Signature Dt/Tm: 08/30/2024 03:07PM Division of Sports Medicine DC Patient Care team information Care Team Personnel Name: Cailin Rivera Position: HIS Supervisor_P Member Role: HIS Lifetime Care Team Related Persons Name: MATT HYDE Name: WALTER CORONA Insurance Providers Guarantor name: FLO RODRIGUEZ Health Plan Information #: 1 Payer: [employer] Member Number: [id number] Policy Number: NA Group Number: [id number] Health Plan Information #: 2 Payer: [employer] Member Number: [id number] Policy Number: NA Group Number: [id number]
[2024-09-13] MEDS ORDERED: ROPIVACAINE 0.5% HCL/PF 246 MG, Ketorolac (*for OR use only*) 30 MG in SODIUM CHLORIDE ... INFIL SCH (06:00)
[2024-09-13] MEDS ORDERED: ROPIV 0.5% 246mg, Ketorolac 30mg, EPINEPHrine 0.5mg in NSS INFIL SCH (06:00)
[2024-09-13] MEDS: LR 60ML/HR IV SCH (06:23)
[2024-09-13] MEDS: ACETAMINOPHEN 500 MG TAB PO SCH ×2 (06:24→14:58)
[2024-09-13] MEDS: FAMOTIDINE 20 MG TAB PO SCH (06:24)
[2024-09-13] MEDS: CeleBREX 200 MG CAP PO SCH (06:24)
[2024-09-13] MEDS: dexAMETHasone**PF** 10 MG/ML VIAL IV SCH (06:25)
[2024-09-13] MEDS: Scopolamine 1 MG TDSY TD SCH (06:25)
[2024-09-13] MEDS ORDERED: BUPIVACAINE 0.5 % 5 MG/1 ML PF 10ML VIAL ONE (06:31)
[2024-09-13] MEDS ORDERED: ePHEDrine sulfate 50 MG/ML AMP IV PRN (06:39)
[2024-09-13] MEDS ORDERED: KETOROLAC 30 MG/ML VIAL IV PRN (06:39)
[2024-09-13] MEDS ORDERED: ONDANSETRON INJ 2 MG/ML 2 ML VIAL IV PRN ×2 (06:39→08:56)
[2024-09-13] MEDS ORDERED: ATROPINE SULFATE 0.1 MG/ML 10ML SYR IV PRN (06:39)
[2024-09-13] MEDS ORDERED: MIDAZOLAM HCL 1 MG/ML 2ML VIAL ONE ×2 (06:40→07:14)
[2024-09-13] MEDS ORDERED: PROPOFOL IV EMULSION 10 MG/ML 20 ML VIAL IV ONE (06:40)
[2024-09-13] MEDS ORDERED: LIDOCAINE 2% 2 ML VIAL/AMP(20MG/ML) INFIL ONE (06:40)
--- NOTE | 2024-09-13 06:41 | History & Physical Bridge Note ---
Date of Service September 13, 2024 History & Physical Bridge Note I have examined the patient, reviewed the History & Physical and in the interval since the performance of the History & Physical I have noted the following changes of clinical significance: no changes noted
[2024-09-13] MEDS: TRANEXAMIC ACID 1,000 MG **IV Pre-op IV SCH (06:52)
[2024-09-13] MEDS: ceFAZolin 2000MG 2,000 MG/15 ML SYR IV SCH ×2 (07:05→16:08)
[2024-09-13] MEDS: ORTHO JOINT ANESTHETIC ONE (07:39)
[2024-09-13] MEDS: ROPIVACAINE 0.5% HCL/PF 246 MG, Ketorolac (*for OR use only*) 30 MG in SODIUM CHLORIDE ... INFIL SCH (08:06)
[2024-09-13] MEDS: TRANEXAMIC ACID 1,000 MG **IV Intra-op IV SCH (08:20)
--- NOTE | 2024-09-13 08:49 | Operative Report ---
Post Operative Report Pre & Post Diagnosis Operation Date: 09/13/24 07:00 Pre-Op Diagnosis: Left Hip Osteoarthritis Post-Op Diagnosis: Left Hip Osteoarthritis I identified the patient and participated in the time-out.: Yes Procedure Operation Date: 09/13/24 07:00 Actual Procedures p Left Total Hip Arthroplasty(Left) - Myron Okeefe MD Surgeon Myron Okeefe MD Estimator Project Manager NAEEM Taylor PA-C. No resident or fellow was available to assist. Estimated Blood Loss 150 Findings Consistent with Post-Op Diagnosis Specimens Left hip arthritis Anesthesia Type Spinal MAC Complications none Disposition Disposition: Recovery Room Indications 78-year-old female with left hip osteoarthritis refractory to conservative management. I had a long discussion with her about the risks and benefits of surgery, alternatives to surgery, and expected outcomes. After reviewing all these she elected to proceed with surgery. All questions were answered. Informed consent was signed. Description of Procedure Patient was identified in the preoperative holding area where the surgical site, left hip, was marked. A spinal anesthetic was placed, then the patient was brought back to the main operating room, placed in the operating table and moved into the lateral decubitus position. Axillary roll was placed. All bony prominences were padded. Perioperative antibiotics and tranexamic acid 1 gram IV were administered. The operative extremity was prepped and draped in the normal sterile fashion. Prior to incision a multidisciplinary timeout was called. All in the room were in agreement. We began by making an incision for a posterior approach to the hip. We dissected down through subcutaneous tissues to the level of the fascia. The fascia was incised in line with the incision. Charnley bow was placed. Fatty tissue was reflected posteriorly off the back of the greater trochanter to expose the piriformis and short external rotators of the hip. Quadratus femoris was taken off the femur subperiosteally. The piriformis and short external rotators were dissected off the posterior aspect of the hip. A box cut was made in the capsule. Inferior hip capsule was released off the femur. The femoral head was dislocated. The femoral neck cut was made at our preoperative template. The acetabulum was then exposed. The labrum was sharply excised. Contents of the cotyloid fossa were removed with electrocautery. We then began reaming at a size 8 mm less than our preoperative template. We reamed up by 1 [address] the way up to a size 52 mm cup. This gave us good bleeding cancellus bone circumferentially. The acetabulum was then irrigated out and dried. The real Goodwell Gription cup was then impacted down into position with 45 degrees of lateral opening and 25 degrees of anteversion. A single cancellous bone screw was placed up into the ilium. Excellent fixation was obtained. A trial liner for a 32 mm femoral head was then placed. Next we turned our attention to the femur. The lateral neck was removed with a box osteotome. Intramedullary guide was used to establish the intramedullary canal. We then broached all the way up to a size 5. We began trialing with a high offset neck and a +5 head. Hip was reduced. Leg lengths were symmetric. The hip was stable in extension and external rotation, and stable in the sleeper position. At 90 degrees of hip flexion the hip could be internally rotated 55 degrees before levering out of the cup. I was very happy with the stability exam. Therefore the hip was dislocated and the femoral trial was removed. The acetabulum was re-exposed, and the trial liner was removed. Lapwai hole eliminator screw was placed. An Altrx polyethylene liner for a 32 mm femoral head was then impacted into the shell. The locking mechanism was checked to ensure that it had engaged which it had. The femur was re-exposed. The femoral canal was irrigated and dried. The real Actis femoral stem was opened up. This was impacted down into position. The femoral head was opened up and gently impacted down onto the trunnion. The hip was atraumatically reduced. Another 1 gram of IV tranexamic acid was started prior to closure. The wound was irrigated out with sterile Betadine solution. The periarticular injection cocktail was then placed. The short external rotators, piriformis, and posterior capsule were repaired through drill holes in the greater trochanter using #2 Vicryl. The fascia was run with a looped #1 PDS. The subcutaneous layer was closed with #1 PDS. The dermal layer was closed with 2-0 Vicryl. Zip line was used for the skin followed by a Silverlon dressing. A compressive dressing was then placed. The patient was then rolled supine. Leg lengths were rechecked and were symmetric. An abduction pillow was placed. Sedation was lifted and the patient was transferred to the recovery room in stable condition. Summary of implants: Depuy Goodwell Gription Acetabular Shell Sector Cup, 52 mm outer diameter Goodwell Cancellous bone screw, 6.5 x 35 mm Lapwai hole eliminator Goodwell Altrx Polyethylene Acetabular Liner, Neutral, with a 32 mm inner diameter DePuy Actis collared cementless Femoral stem, 12/14 taper, size 5 high offset 32 mm ceramic femoral head with +5 offset Postoperative course: Patient will be admitted overnight from the recovery room. Patient will be weightbearing as tolerated with posterior hip precautions. Aspirin for DVT prophylaxis I attest to the content of the Intraoperative Record and any orders documented therein. Any exceptions are noted below.
[2024-09-13] MEDS ORDERED: MAGNESIUM HYDROXIDE SUSP 30 ML UDC PO PRN (08:56)
[2024-09-13] MEDS ORDERED: NALOXONE HCL 0.4 MG/1 ML VIAL/CARP IV PRN (08:56)
[2024-09-13] MEDS ORDERED: bisacodyL 10 MG SUPP PR PRN (08:56)
[2024-09-13] MEDS ORDERED: METOCLOPRAMIDE HCL INJ 5 MG/ML 2 ML VIAL IV PRN (08:56)
[2024-09-13] MEDS ORDERED: ALUMINUM/MAGNESIUM SUSP 30 ML UDC PO PRN (08:56)
[2024-09-13] MEDS ORDERED: diphenhydrAMINE 50 MG/ML VIAL IV PRN (08:56)
--- NOTE | 2024-09-13 08:56 | Operative Report ---
Post Operative Report Pre & Post Diagnosis Operation Date: 09/13/24 07:00 Pre-Op Diagnosis: Left Hip Osteoarthritis Post-Op Diagnosis: Left Hip Osteoarthritis I identified the patient and participated in the time-out.: Yes Procedure Operation Date: 09/13/24 07:00 Actual Procedures p Left Total Hip Arthroplasty(Left) - Myron Okeefe MD Surgeon Myron Okeefe MD Blueprint Processor NAEEM Taylor PA-C. No resident or fellow was available to assist. Estimated Blood Loss 150 Findings Consistent with Post-Op Diagnosis Specimens femoral head Description of Procedure I was present during the entire case assisting with positioning, prepping, draping, wound retraction, wound closure, dressing and abduction pillow placement. No fellow present. Please see Dr. Okeefe procedure note for specifics of the case. I attest to the content of the Intraoperative Record and any orders documented therein. Any exceptions are noted below.
[2024-09-13] MEDS ORDERED: PHENYLEPHRINE 100MCG/ML 5ML SYR ONE (08:57)
[2024-09-13] MEDS ORDERED: ePHEDrine sulfate 50 MG/5 ML SYR ONE (08:57)
[2024-09-13] MEDS ORDERED: FLUTICASONE PROPIONATE NA SPR 16 GM BTL NAE PRN (08:59)
[2024-09-13] MEDS ORDERED: ALBUTEROL HFA 8 GM INHALER INH PRN ×2 (08:59→09:28)
[2024-09-13] MEDS ORDERED: MONTELUKAST SODIUM 10 MG TABLET PO PRN (08:59)
[2024-09-13] MEDS ORDERED: NON-FORMULARY MEDICATION (Flaxseed Oil 1,000 mg capsule) PO SCH (09:00)
[2024-09-13] MEDS ORDERED: NON-FORMULARY MEDICATION (Coenzyme Q10 [Coq-10] 100 mg Capsule) PO SCH (09:00)
[2024-09-13] MEDS ORDERED: NON-FORMULARY MEDICATION (Biotin 5 mg Capsule) PO SCH (09:00)
[2024-09-13] MEDS ORDERED: DICLOFENAC SODIUM 75 MG TABCR PO SCH (09:00)
[2024-09-13] MEDS ORDERED: NON-FORMULARY MEDICATION (Multivitamin Tablet) PO SCH (09:00)
--- NOTE | 2024-09-13 09:20 | XRay Report ---
XR pelvis 1-2V routine CLINICAL HISTORY: In PACU - Post Surgical COMPARISON: 08/29/2024 FINDINGS: Bilateral hip prosthesis shows no hardware complication. There is expected soft tissue gas on the left. IMPRESSION: Unremarkable postoperative exam. ACT 112: Negative or not required by law. Electronically signed by: Nikolai Soto M.D. 09/13/2024 9:18 AM
[2024-09-13] MEDS ORDERED: CALCIUM CARBONATE 500 MG CHEWABLE TAB PO PRN (09:30)
[2024-09-13] MEDS ORDERED: FLUTICASONE FUROATE 100MCG 14 PUFFS/INHALER INH PRN (09:33)
--- NOTE | 2024-09-13 11:29 | Anesthesiology Progress Note ---
Date of Service September 13, 2024 Anesthesia Post Procedure Vital Signs Vital Signs: Temp Pulse Resp BP Pulse Ox O2 Del Method O2 Flow Rate 09/13/24 11:09 66 18 118/57 L 95 Room Air 09/13/24 10:55 65 16 108/68 95 Room Air 09/13/24 10:40 62 14 120/67 95 Room Air 09/13/24 10:25 64 14 115/70 96 Room Air 09/13/24 10:10 61 16 129/74 95 Room Air 09/13/24 10:00 36.4 C L 62 13 120/67 95 Room Air 09/13/24 09:50 63 13 107/72 95 Room Air 09/13/24 09:40 63 14 112/66 95 Room Air 09/13/24 09:30 62 12 107/77 99 Oxymask 4 09/13/24 09:20 61 16 116/76 100 Oxymask 4 09/13/24 09:10 62 16 120/64 99 Oxymask 4 09/13/24 09:00 63 14 114/65 100 Oxymask 4 09/13/24 08:53 36.5 C 66 16 104/69 97 Oxymask 6 09/13/24 06:09 36.6 C 70 18 139/84 100 Room Air Transfer of Care Handoff Completed per policy Notes Mental Status: alert / awake / arousable Patient Amnestic to Procedure: Yes Nausea / Vomiting: adequately controlled Pain: adequately controlled Airway Patency, RR, SpO2: stable & adequate BP & HR: stable & adequate Hydration State: stable & adequate Neuraxial Anesthesia: was administered and sensory block is resolving Anesthetic Complications: no major complications apparent and Pt Satisfied with anesthetic care
[2024-09-13] MEDS: MULTIVITAMIN TAB PO SCH (14:58)
[2024-09-13] MEDS: KETOROLAC TROMETHAMINE 15 MG/ML VIAL IV SCH (14:59)
[2024-09-13] MEDS: DULoxetine HCL 60 MG CAP PO SCH (14:59)
[2024-09-13] MEDS: DOCUSATE SODIUM 100 MG CAP PO SCH (14:59)
[2024-09-13] MEDS: Scopolamine CHECK PATCH PLACEMENT SCH (16:12)
[2024-09-13] MEDS: oxyCODONE HCL IR 5 MG TAB (IMMEDIATE RELEASE) PO PRN (16:41)
[2024-09-13] MEDS ORDERED: Nursing to Pharmacy Communication SCH (17:00)
[2024-09-13] MEDS: SENNA 8.6 MG TAB PO SCH (20:35)
[2024-09-13] MEDS: MELATONIN 3 MG TAB PO SCH (20:35)
[2024-09-13] MEDS: traZODone HCL 50 MG TAB PO SCH (20:35)
[2024-09-13] MEDS: GABAPENTIN 400 MG CAP PO SCH (20:36)
[2024-09-13] MEDS: ASPIRIN 81 MG ECTAB PO SCH (20:36)
[2024-09-14 06:20] LABS: Basophils # (auto) 0.01 K/uL (0.00-0.20); Basophils % (auto) 0.1 %; Eosinophils # (auto) 0.02 K/uL (0.00-0.50); Eosinophils % (auto) 0.3 %; Hematocrit (blood only) 31.8 % (37.0-47.0); Immature Granulocytes # (auto) 0.02 K/uL (0.01-0.20); Immature Granulocytes % (auto) 0.3 %; Lymphocytes # (auto) 1.94 K/uL (1.20-3.40); Lymphocytes % (auto) 27.8 %; Mean Corpuscular Hemoglobin 33.3 pg (25.0-34.0); Mean Corpuscular Hgb Conc 34.6 g/dL (32.0-36.0); Mean Corpuscular Volume 96.4 fL (80.0-100.0); Mean Platelet Volume 11.4 fL (9.4-12.4); Monocytes # (auto) 0.59 K/uL (0.11-0.59); Monocytes % (auto) 8.5 %; Neutrophils # (auto) 4.39 K/uL (1.40-6.50); Platelet Count 162 K/uL (130-400); RDW Coefficient of Variation 11.9 % (11.5-14.5); RDW Standard Deviation 41.6 fL (36.4-46.3); White Blood Count 6.97 K/ul (4.8-10.8)
[2024-09-14 06:23] VITALS: O2SAT 99
[2024-09-14 06:33] LABS: BUN Creatinine Ratio 19.2 (10-20); Calcium 9.7 mg/dl (8.6-10.3); Potassium 4.4 mmol/L (3.5-5.1)
[2024-09-14 07:51] VITALS: PULSE 66; RESP 14; TEMP 97.7
[2024-09-14] MEDS: dexAMETHasone 10 MG in SYRINGE 0 ML IV SCH (09:23)
[2024-09-14] MEDS: CHOLECALCIFEROL 25 MCG (1000 UNITS) TAB PO SCH (09:24)
[2024-09-14] MEDS: KETOROLAC TROMETHAMINE 15 MG/ML VIAL IV ONE (09:35)
--- NOTE | 2024-09-14 09:35 | Orthopedic Progress Note ---
Date of Service September 14, 2024 Assessment & Plan (1) S/P total hip arthroplasty: Plan: Total hip precautions reviewed Weightbearing as tolerated with walker assistance Pain control with p.o. medication DVT prophylaxis with aspirin and LAMBERTO stockings Abduction pillow use x 6 weeks Keep Silverlon dressing in place until follow-up Ice with easy wrap PT/OT Plan is to discharge home later this morning with in-home physical therapy beginning tomorrow. Follow-up at [facility] [address] orthopedics as previously scheduled With questions contact our clinic at [phone] Admission and Anticipated Discharge Date Admission Date: September 13, 2024 Subjective This 78-year-old female is day 1 status post left total hip arthroplasty. Patient is doing very well this morning. She is currently dressed and very anxious to be discharged home. She has not yet done PT or OT. Currently she denies any numbness or tingling in her left lower extremity. She states her pain is well-managed with the p.o. pain medication. She denies chest pain, shortness of breath, fever, chills, sweats, nausea, vomiting, diarrhea or difficulty voiding. Review of Systems Review of Systems: All systems reviewed & are unremarkable except as noted in Subjective Physical Exam Physical Exam: Left hip: Outer dressing was removed. Silverlon is clean dry and intact to left in place. Patient is able to easily transition from a seated to a standing position. She is able to actively dorsi and plantarflex her foot. She has no limitations with dorsi or plantarflexion. She tolerates passive hip flexion near 90 degrees and only feels slight tension with light passive internal rotation but has no discomfort with external rotation. Quad strength is 4 out of 5. She is neurovascularly intact in the left lower extremity. Results & Data Vital Signs (Past 12 Hours) Vital Signs Temp Pulse Pulse Resp BP BP Pulse Ox 09/14/24 07:43 36.5 C 66 14 128/78 99 09/14/24 04:00 36.6 C 64 16 116/76 99 09/14/24 03:24 36.6 C 64 18 120/76 97 09/13/24 23:51 36.8 C 66 18 119/74 98 O2 Del Method 09/14/24 07:43 Room Air 09/14/24 04:00 Room Air 09/14/24 03:24 Room Air 09/13/24 23:51 Room Air Diagnostic Findings Laboratory Results WBC 6.97 K/ul (4.8-10.8) 09/14/24 05:26 RBC 3.30 M/uL (4.20-5.40) L 09/14/24 05:26 Hgb 11.0 g/dl (12.0-16.0) L 09/14/24 05:26 Hct 31.8 % (37.0-47.0) L 09/14/24 05:26 MCV 96.4 fL (80.0-100.0) 09/14/24 05:26 MCH 33.3 pg (25.0-34.0) 09/14/24 05: MCHC 34.6 g/dL (32.0-36.0) 09/14/24 05:26 RDW Std Deviation 41.6 fL (36.4-46.3) 09/14/24 05:26 RDW Coeff of Jose Francisco 11.9 % (11.5-14.5) 09/14/24 05:26 Plt Count 162 K/uL (130-400) 09/14/24 05:26 MPV 11.4 fL (9.4-12.4) 09/14/24 05:26 Immature Gran % (Auto) 0.3 % 09/14/24 05:26 Neut % (Auto) 63.0 % 09/14/24 05:26 Lymph % (Auto) 27.8 % 09/14/24 05:26 [place] % (Auto) 8.5 % 09/14/24 05:26 Eos % (Auto) 0.3 % 09/14/24 05:26 Baso % (Auto) 0.1 % 09/14/24 05:26 Neut # (Auto) 4.39 K/uL (1.40-6.50) 09/14/24 05:26 Lymph # (Auto) 1.94 K/uL (1.20-3.40) 09/14/24 05:26 [place] # (Auto) 0.59 K/uL (0.11-0.59) 09/14/24 05:26 Eos # (Auto) 0.02 K/uL (0.00-0.50) 09/14/24 05:26 Baso # (Auto) 0.01 K/uL (0.00-0.20) 09/14/24 05:26 Immature Gran # (Auto) 0.02 K/uL (0.01-0.20) 09/14/24 05:26 Sodium 136 mmol/L (136-145) 09/14/24 05:26 Potassium 4.4 mmol/L (3.5-5.1) 09/14/24 05:26 Chloride 103 mmol/L (98-107) 09/14/24 05:26 Carbon Dioxide 28 mmol/L (21-32) 09/14/24 05:26 Anion Gap 5 (3-11) 09/14/24 05:26 BUN 14 mg/dl (6-23) 09/14/24 05:26 Creatinine 0.73 mg/dl (0.6-1.2) 09/14/24 05:26 Est Cr Clr Drug Dosing 66.0 ml/min 09/14/24 05:26 eGFR 84.65 09/14/24 05:26 BUN/Creatinine Ratio 19.2 (10-20) 09/14/24 05:26 Glucose 111 mg/dl (70-99(Fasting)) H 09/14/24 05:26 Calcium 9.7 mg/dl (8.6-10.3) 09/14/24 05:26 Impressions Pelvis X-Ray 09/13/24 08:56 XR pelvis 1-2V routine CLINICAL HISTORY: In PACU - Post Surgical COMPARISON: 08/29/2024 FINDINGS: Bilateral hip prosthesis shows no hardware complication. There is expected soft tissue gas on the left. IMPRESSION: Unremarkable postoperative exam. ACT 112: Negative or not required by law. Electronically signed by: Nikolai Soto M.D. 09/13/2024 9:18 AM (1) S/P total hip arthroplasty Laterality: right Qualified Code(s): Z96.641 - Presence of right artificial hip joint
--- NOTE | 2024-09-14 09:47 | Discharge Summary ---
Date of Service September 14, 2024 Admission HPI Per Admitting Provider History of Present Illness (including history relevant to procedure): This 78-year-old female presents the clinic today for preoperative history and physical. Patient complains of left-sided hip and groin pain since last January. She states she has been taking diclofenac once a day, aspirin 3 times a day, and Tylenol 2-3 times per day for it. Patient states she is also having trouble putting on her left sock and shoe. She states her hip feels similar to her right hip before she had it replaced. Patient states that Dr. Okeefe replaced her right hip in 2020 and she is having great results of the surgery. Patient is electing to proceed with surgical intervention for her left hip osteoarthritis. Review Of Systems: A 12 point review of systems is performed and is unremarkable except for those things stated in the HPI and past medical history. Past Medical History: Problems: Dysuria Asthma with exacerbation Swelling of right foot Osteoarthritis of right hip Pre-op exam Right hip pain Seasonal affective disorder Bursitis of right hip Left knee pain Essential hypertension Mild asthma Chest congestion Anxiety GERD Procedure History Procedure Procedure Date Comments Shave biopsy 03/11/2022 Chest X-ray 02/12/2022 - No acute process X-ray of left knee Right total hip arthroplasty 01/14/2020 - Negative study. Allergies and Sensitivities: traMADol(unknown) tapentadol(unknown) Opana(unknown) oxyCODONE(unknown) morphine(unknown) methadone(unknown) Demerol(unknown) Dilaudid(unknown) HYDROcodone(unknown) fentaNYL(unknown) Zoloft(unknown) Paxil(unknow) Luvox(unknown) PROzac(unknown) Lexapro(unknown) CeleXA(unknown) EPINEPHrine(heart palpations) Flagyl(nausea) codeine(nausea) nitrous oxide(combative) Current Home Meds: (Last Updated 08/29 11:44) DULoxetine (DULoxetine 60 mg oral delayed release capsule) 120 mg PO Daily LORazepam (Ativan 1 mg oral tablet) 2 mg PO As indicated preop acetaminophen (Tylenol) 1,000 mg PO q6h PRN: as needed for pain albuterol (ProAir HFA 90 mcg/inh inhalation aerosol) 2 puff inhaled qid PRN: as needed for wheezing amoxicillin-clavulanate (Augmentin 875 mg-125 mg oral tablet) 1 tab PO q12h amoxicillin (amoxicillin 500 mg oral capsule) 2,000 mg PO As indicated one hour before dental and other procedures as directed biotin (biotin 5000 mcg oral tablet, disintegrating) PO Daily cholecalciferol (Vitamin D3 2000 intl units (50 mcg) oral capsule) diclofenac (diclofenac sodium 75 mg oral delayed release tablet) TAKE 1 TABLET TWICE A DAY WITH FOOD NEEDED FOR PAIN estradiol topical (Estring 2 mg vaginal ring) flax (Flax Seed Oil) fluticasone nasal (Flonase 50 mcg/inh nasal spray) 1 spray each nostril Daily PRN: allergy symptoms gabapentin (gabapentin 300 mg oral capsule) 900 mg PO Daily gabapentin (gabapentin 300 mg oral capsule) 300 mg PO qhs loratadine-pseudoephedrine (Claritin-D 12 Hour) 1 tab PO Daily melatonin mometasone (mometasone 220 mcg/inh inhalation aerosol powder) 220 mcg inhaled qPM multivitamin 1 tab PO Daily traZODone (traZODone 150 mg oral tablet) 150 mg PO qhs Initial Wt: 08/29 89.0 kg 196 lb Admission Exam Per Admitting Provider Physical Exam: (relevant to the procedure, including heart and lung evaluation) General: Alert and oriented x 3 with proper grooming and hygiene Eyes: Pupils are equal and reactive to light with accommodation. Extraocular movements are intact Neck: Posterior oropharynx clear with absence of edema, erythema or exudate Cardiac: Regular rate and rhythm no murmurs or gallops appreciated Lungs: Clear to auscultation throughout with no wheezing, rales or rhonchi Abdomen: Mildly obese, nondistended, nontender with normal active bowel sounds Extremities: Hip; flexion up to 95 degrees, external rotation of 30 degrees and internal rotation is 0. Positive Preet and impingement test. Slight antalgic gait. Neurovascularly intact. Logroll test negative. Straight leg raise test negative. Tenderness to palpation in the groin and lateral aspect of her hip. Neuro: Cranial nerves II through XII are intact with no motor or sensory deficit Skin: Normal appearance with no open skin areas or discharge Principal Diagnosis Left hip osteoarthritis Discharge Exam Left hip: Outer dressing was removed. Silverlon is clean dry and intact to left in place. Patient is able to easily transition from a seated to a standing position. She is able to actively dorsi and plantarflex her foot. She has no limitations with dorsi or plantarflexion. She tolerates passive hip flexion near 90 degrees and only feels slight tension with light passive internal rotation but has no discomfort with external rotation. Quad strength is 4 out of 5. She is neurovascularly intact in the left lower extremity. Discharge Data Allergies Allergy/AdvReac Type Severity Reaction Status Date / Time codeine AdvReac Severe Nausea Verified 09/13/24 06:03 nitrous oxide AdvReac Severe "jumpy, Verified 09/13/24 06:03 combative" Opioids-Meperidine and AdvReac Severe Nausea Verified 09/13/24 06:03 Related temazepam AdvReac Severe severe Verified 09/13/24 06:03 panic attack epinephrine AdvReac Unknown "HEART Verified 09/13/24 06:03 RACES" hydrochlorothiazide AdvReac Unknown pt doesn't Verified 09/13/24 06:03 remember anything about that med metronidazole AdvReac Unknown NAUSEA Verified 09/13/24 06:03 Procedures Performed Operation Date: 09/13/24 07:00 Actual Procedures p Left Total Hip Arthroplasty(Left) - Myron Okeefe MD Hospital Course (1) S/P total hip arthroplasty: Patient had an uneventful overnight stay following left total hip arthroplasty. She is very pleased with the results of the surgery. She states she is already established with a known physical therapy and they are set to begin tomorrow. She has already been scheduled for 2-week follow-up in our clinic. Total hip precautions reviewed Weightbearing as tolerated with walker assistance Pain control with p.o. medication DVT prophylaxis with aspirin and LAMBERTO stockings Abduction pillow use x 6 weeks Keep Silverlon dressing in place until follow-up Ice with easy wrap PT/OT Plan is to discharge home later this morning with in-home physical therapy beginning tomorrow. Follow-up at [facility] orthopedics as previously scheduled With questions contact our clinic at [phone] Total Time Total Time Spent Total Time Spent (In Minutes): 20 minutes Discharge Plan Discharge Items Patient Disposition: Home - Home Health Services Reason For Visit: Left Hip Osteoarthritis Discharge Diagnosis: s/p left total hip arthroplasty Activity: As commented below Lifting: None Bathing: Keep incision dry Bathing Comment: May shower later today Sexual Activity: Wait until after follow-up appointment Exercise/Sports: Wait until after follow-up appointment Driving/Machine Use: No driving until cleared by heat plant specialist Weightbearing: Left weightbearing Weightbearing Comment: As tolerated with walker assistance Non-emergency contact: Surgeon Call non-emergency contact if: you have any medication questions, your pain is not controlled, your temperature is above 101.5, your wound has increased drainage and your wound pain has increased Follow-up/Referrals: PCP,NO [Physician] - Diet: Regular Ambulatory Orders: Partial Thromboplastin Time (Routine) Timeframe: [id number] Location: Determined by Patient Ordered By: Inés Pool Attending Provider Instructions: Post-operative Instructions Dear Patient and Family/Friends, Before you are discharged from the hospital, it is important to know what to expect when you get home after surgery. To that end, we have created this sheet of discharge instructions which covers many commonly asked questions. Make sure you go through this sheet in its entirety with your nurse before you are discharged. Please note that we will go over the specifics of your surgery and recovery when you return for your first post-operative visit. Sincerely, Dr. Okeefe Medications 1. Oxycodone 5 mg: Take 1-2 tabs every 4-6 hours as needed for postoperative pain control. This medication will be sent to your pharmacy 2. Diclofenac sodium 75 mg: Take 1 tablet twice daily for the first 30 days postoperatively. This will be sent to your pharmacy with a refill 3. Aspirin 81 mg: Take 1 tablet twice daily for 30 days postoperatively for blood clot prevention. Please purchase the medication. 4. Extra strength Tylenol 500 mg: Take 2 tabs every 6-8 hours as needed for additional supplemental pain control. Please purchase this medication. 5. Zofran 4 mg: Take 1 tablet every 8 hours as needed for postoperative nausea and vomiting. This will be sent to your pharmacy. Pain Expect to be in a fair amount of pain after surgery. Remember, our goal is not to eliminate your pain, but to make it tolerable. It is a good idea to stay ahead of your pain by taking the medications you were prescribed once you get home. Typically, the pain starts improving 3-7 days after surgery. You should start weaning off the narcotic pain medication (oxycodone, hydrocodone, hydromorphone, morphine) as soon as your pain improves. Please call our office if your pain is not adequately controlled. Ice Ice your operative site at least 5 times a day for 15-30 minutes at a time. Make sure you have a thin cloth between the ice or cooling unit and your skin to prevent cervantes bite. This is especially important if you received a nerve block. Continue icing your operative site for the first 5-7 days after surgery, then as needed. Diet/Nausea/Vomiting Start by drinking clear liquids and eating crackers. If you can tolerate this, then you may resume your normal diet. If you feel nauseated or vomit, take Zofran/ondansetron (if prescribed). Please call our office if you have intractable nausea or vomiting, or, if after hours, you may go to the Emergency Room for help. Constipation Constipation is a common side effect of narcotic pain medication. If you have not had a bowel movement within 2 days after surgery, we recommend purchasing an over the counter laxative such as Milk of Magnesia, Dulcolax, or Miralax from a local pharmacy, and taking it as instructed. Call our clinic if any questions. Nerve block The anesthesia team sometimes places a nerve block to help with post-operative pain control. This results in significant numbness and inability to move the extremity. The nerve block usually wears off in 8-12 hours, but sometimes can last up to 24 hours. Please call our office if you are still unable to move your extremity after 24 hours, unless you received a pain pump to take home. Nerve blocks typically wear off quickly, so start taking pain medication as soon as you start feeling soreness near your surgical site. Weight bearing and Range of Motion. Do not bear any weight through your operative extremity immediately after surgery. If you had upper extremity surgery, do not lift anything with that arm. If you are in a knee brace, keep it locked in place until your follow-up. We will discuss your weight bearing, range of motion, and lifting restrictions in detail at your first post-operative appointment. Continuous Passive Motion (CPM) Machine If you were prescribed a CPM machine, it will start after your first post- operative appointment, at which time we will give you instructions on the range of motion settings and duration of treatment Physical therapy You will be given a prescription for physical therapy or occupational therapy at your first post-operative appointment. Typically, patients start therapy within 1 week of surgery Wound care and showering We will inspect your wound at your first post-operative visit, and may do a dressing change at that time. Most patients will be in a water-proof dressing that is removed 14 days after surgery. It is normal to see some dried blood on the dressing. Do not remove your dressing, paper strips or sutures yourself unless you are given permission. Showering is allowed the day after surgery. Do not scrub or remove any dressings. The wound should not be submerged underwater (i.e. in a bathtub or pool) until 4 weeks after surgery LAMBERTO stockings If you were given white stockings, these are to be worn at all times except to shower (on both legs) for the first 2 weeks after surgery. Driving You may not drive while taking narcotic pain medication or while in a cast, splint, sling or brace. You, the patient, need to make the final determination about when you are safe to drive, however, the earliest you may consider driving after surgery is below: Hand/Wrist/Elbow Surgery: 3 days Shoulder Surgery: 2 weeks Hip,/Knee/Ankle Surgery: 4 weeks Fracture repair: 6 weeks Return to Work Your return to work depends on what surgery was done and what type of work you do. Please bring any paperwork your employer needs completed to your first post-operative visit. Also, bring a description of your job duties, as this helps us to understand what risks you may face at work. Travel Avoid long distance travel (greater than 1 hour) in airplanes and cars for the first 6 weeks after surgery. If you must travel, you need to have a Doppler ultrasound done before you travel to rule out a blood clot in your legs. Follow-up You should have a follow-up appointment already scheduled 1-2 days after surgery. If not, please contact our office to make this appointment before you leave the hospital. When to call the office It is normal to have swelling and bruising in the limb that was operated on. This will improve with time. It is also normal to have fevers for the first 2 days after surgery. Reasons you should call your doctor include: Uncontrolled pain; Nausea, vomiting, or constipation that does not improve with medication; Fevers over 101.5, chills, sweats; Drainage or bleeding from the wound; Foul odor; Spreading areas of redness; Any other concerns. Contact Information Please call Dr. Okeefe's office at [phone] with any concerns. Pending Studies at Discharge: No Stand-Alone Forms: My [facility] Medications and DC Order Prescriptions: New acetaminophen [Tylenol Extra Strength] 500 mg Tablet 1,000 mg PO Q8 30 Days Qty: 180 0RF aspirin 81 mg Tablet,Delayed Release (Dr/Ec) 81 mg PO BID 30 Days Qty: 60 0RF oxycodone 5 mg Tablet 5 - 10 mg PO Q4H MDD ongoing Tx; max 6/day PRN (Reason: post op pain control) Qty: 28 0RF ondansetron 4 mg tablet,disintegrating 4 mg PO Q8H PRN (Reason: nausea and vomiting) Qty: 14 0RF diclofenac sodium 75 mg tablet,delayed release (DR/EC) 75 mg PO BID 30 Days Qty: 60 1RF Continued Asmanex Twisthaler 220 mcg/ actuation (120) aerosol powdr breath activated 1 inh inhalation UD PRN (Reason: asthma) montelukast 10 mg tablet 10 mg PO UD PRN (Reason: asthma) Patient Comments: only in winter as needed flaxseed oil 1,000 mg capsule 1,000 mg PO QAM Patient Comments: or fish oil Rx Instructions: administer with a meal multivitamin Tablet 1 tab PO QAM biotin 5 mg Capsule 5 mg PO QAM Tums 300 mg (750 mg) Tablet,Chewable 300 mg PO BID PRN (Reason: Heartburn) Patient Comments: very occ fluticasone propionate [Flonase Allergy Relief] 50 mcg/actuation [place],Suspension 1 spray INTRANASAL UD PRN (Reason: Nasal Congestion) cholecalciferol (vitamin D3) [Vitamin D3] 50 mcg (2,000 unit) Capsule 6,000 unit PO QAM albuterol sulfate [ProAir HFA] 90 mcg/actuation HFA aerosol inhaler 1 puff INHALATION UD PRN (Reason: asthma) Patient Comments: very rare use trazodone 100 mg Tablet 150 mg PO HS duloxetine 60 mg Capsule,Delayed Release(Dr/Ec) 120 mg PO QAM melatonin 10 mg Tablet 10 mg PO HS Estring 2 mg (7.5 mcg /24 hour) Ring See Rx Instructions .ROUTE .COMPLEX Patient Comments: "its currently in place" Rx Instructions: insert vaginally; change every 90days coenzyme Q10 [CoQ-10] 100 mg Capsule 200 mg PO QAM gabapentin 400 mg Tablet 400 mg PO HS Rexulti 1 mg Tablet 0.5 mg PO BID Changed diclofenac sodium 75 mg tablet,delayed release (DR/EC) 75 mg PO BID Qty: 0 0RF Discontinued acetaminophen 325 mg capsule 325 mg PO QID PRN (Reason: Pain) Discharge Orders: Discharge Order (Routine); Ordered 09/14/24 Ordered By: Sha Taylor Admission Data Admit Date/Time: 09/13/24 08:56 Attending Provider: Myron Okeefe Admit Provider: Myron Okeefe Primary Care Provider: Alma Delia Villafuerte Other Providers: [facility]
[2024-09-14 10:26] VITALS: BP 116/76
== END 2024-09-14 11:09 | disposition home health service (06) | DRG 470 ==
LOC: ASU 05:46 → INTOOBSV 08:56 → 3E 08:56